=== PATIENT | female | born 2000 | race Caucasian/White ===

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

== ENCOUNTER 2019-06-15 19:28 | Emergency (ER) | payer OTHER ==
[2019-06-15 19:38] VITALS: RESP 16
[2019-06-15 20:06] LABS: Amorphous Sediment,Urine Rare /hpf; Appearance,Urine Cloudy (Clear); Bilirubin,Urine Negative (Negative); Blood,Urine Negative (Negative); Color,Urine Yellow; Glucose,Urine (UA) Negative (Negative); Ketones,Urine Negative (Negative); Leukocyte Esterase,Urine Negative (Negative); Mucus,Urine Rare /hpf; Nitrite,Urine Negative (Negative); Protein,Urine Negative (Negative); RBC,Urine 1 /hpf (0-5); Specific Gravity,Urine 1.015 (1.001-1.035); Squamous Epithelial Cell,Urine 5 /hpf (0-4); WBC,Urine 5 /hpf (0-5)
[2019-06-15 20:19] LABS: Basophils # (A) 0.1 k/uL (0-0.2); Basophils % (A) 1 %; Eosinophils # (A) 0.5 k/uL (0-0.7); Eosinophils % (A) 5 %; HCT 38.9 % (34.0-46.0); HGB 13.1 gm/dL (11.4-16.0); Lymphocytes # (A) 2.6 k/uL (1.0-4.8); Lymphocytes % (A) 26 %; MCH 29.4 pg (25.0-35.0); MCHC 33.7 g/dL (31.0-37.0); MCV 87.3 fL (80.0-100.0); Monocytes # (A) 0.6 k/uL (0-1.0); Monocytes % (A) 6 %; Neutrophils % (A) 61 %; Platelet Count 254 k/uL (150-450); RBC 4.45 m/uL (3.80-5.40); RDW 12.7 % (11.5-15.5); WBC 9.9 k/uL (4.0-11.0)
[2019-06-15 20:29] LABS: ALT 28 U/L (9-52); AST 28 U/L (14-36); African American GFR (CKD) >90 (>60 ml/min/1.73 sqM); Albumin 4.2 g/dL (3.5-5.0); Alkaline Phosphatase 110 U/L (38-126); Anion Gap 9 mmol/L; Blood Urea Nitrogen 7 mg/dL (7-17); Calcium 9.3 mg/dL (8.4-10.2); Carbon Dioxide 24 mmol/L (22-30); Chloride 107 mmol/L (98-107); Glucose 109 mg/dL (74-99); Potassium 3.5 mmol/L (3.5-5.1); Sodium 140 mmol/L (137-145); Total Bilirubin 0.6 mg/dL (0.2-1.3); Total Protein 7.3 g/dL (6.3-8.2)
--- NOTE | 2019-06-15 20:41 | ED ---
Nausea/Vomiting/Diarrhea HPI - General Chief complaint: Nausea/Vomiting/Diarrhea Stated complaint: Nausea Time Seen by Provider: 06/15/19 19:39 Source: patient Mode of arrival: ambulatory Limitations: no limitations - History of Present Illness Initial comments: Patient is a 18-year-old female presenting to emergency Department with complaints of nausea x 1 day. Patient states she took a test yesterday that was negative however her mother states that she should have her blood checked to be sure. Patient states she also feels "different.". Patient denies any fever, chills, vomiting, abdominal pain, shortness of breath, chest pain, vaginal bleeding, vaginal discharge. Patient denies being on control. Patient takes no other medications. Patient has no other complaints at this time. Upon arrival to ER, vital signs are stable. - Related Data Home Medications Medication Instructions Recorded Confirmed Cetirizine HCl [Zyrtec] 10 mg PO HS 05/30/18 05/30/18 Norgestimate-Ethinyl Estradiol 1 tab PO DAILY 05/30/18 05/30/18 [Sprintec 28 Day Tablet] Allergies Allergy/AdvReac Type Severity Reaction Status Date / Time No Known Allergies Allergy Verified 06/15/19 19:38 Review of Systems ROS Statement: Those systems with pertinent positive or pertinent negative responses have been documented in the HPI. ROS Other: All systems not noted in ROS Statement are negative. Past Medical History Past Medical History: No Reported History History of Any Multi-Drug Resistant Organisms: None Reported Past Surgical History: No Surgical Hx Reported Past Psychological History: ADD/ADHD Smoking Status: Never smoker Past Alcohol Use History: None Reported Past Drug Use History: None Reported General Exam - General Exam Comments Initial Comments: GENERAL: Well-appearing, well-nourished and in no acute distress. HEAD: Atraumatic, normocephalic. EYES: Pupils equal round and reactive to light, extraocular movements intact, sclera anicteric, conjunctiva are normal. ENT: TMs normal, nares patent, oropharynx clear without exudates. Moist mucous membranes. NECK: Normal range of motion, supple without lymphadenopathy or JVD. LUNGS: Breath sounds clear to auscultation bilaterally and equal. No wheezes rales or rhonchi. HEART: Regular rate and rhythm without murmurs, rubs or gallops. ABDOMEN: Soft, nontender, normoactive bowel sounds. No guarding, no rebound. No masses appreciated. : Deferred EXTREMITIES: Normal range of motion, no pitting or edema. No clubbing or cyanosis. NEUROLOGICAL: Cranial nerves II through XII grossly intact. Normal speech, normal gait. PSYCH: Normal mood, normal affect. SKIN: Warm, Dry, normal turgor, no rashes or lesions noted. Limitations: no limitations Course Vital Signs 06/15/19 06/15/19 06/15/19 19:36 19:38 21:28 Temperature 983 F H 98.3 F 97.6 F Pulse Rate 90 85 Respiratory 16 16 Rate Blood Pressure 126/89 96/79 O2 Sat by Pulse 99 97 Oximetry Medical Decision Making - Medical Decision Making Patient is a 18-year-old female presenting with nausea times one day. Patient believes she may be . Patient took a test yesterday was negative. Patient denies fever, chills, abdominal pain, vaginal discharge, vaginal bleeding, shortness of breath. Patient has no other complaints. Patient's exam is unremarkable today. CBC, CMP, UA are all within normal limits. Urine hCG is not detected at this time. It was discussed with patient that it could be related to her ALLERGIES. Patient's vital signs remained stable. Patient is stable for discharge at this time. Return parameters were discussed with the patient she verbalized understanding. Patient will follow up with PCP as needed. Case discussed with Dr. Cooney. - Lab Data Result diagrams: 06/15/19 20:10 06/15/19 20:10 Lab Results 06/15/19 06/15/19 06/15/19 Range/Units 19:45 19:45 20:10 WBC 9.9 (4.0-11.0) k/uL RBC 4.45 (3.80-5.40) m/uL Hgb 13.1 (11.4-16.0) gm/dL Hct 38.9 (34.0-46.0) % MCV 87.3 (80.0-100.0) fL MCH 29.4 (25.0-35.0) pg MCHC 33.7 (31.0-37.0) g/dL RDW 12.7 (11.5-15.5) % Plt Count 254 (150-450) k/uL Neutrophils % 61 % Lymphocytes % 26 % Monocytes % 6 % Eosinophils % 5 % Basophils % 1 % Neutrophils # 6.0 (1.3-7.7) k/uL Lymphocytes # 2.6 (1.0-4.8) k/uL Monocytes # 0.6 (0-1.0) k/uL Eosinophils # 0.5 (0-0.7) k/uL Basophils # 0.1 (0-0.2) k/uL Sodium (137-145) mmol/L Potassium (3.5-5.1) mmol/L Chloride (98-107) mmol/L Carbon Dioxide (22-30) mmol/L Anion Gap mmol/L BUN (7-17) mg/dL Creatinine (0.52-1.04) mg/dL Est GFR (CKD-EPI)AfAm (>60 ml/min/1.73 sqM) Est GFR (CKD-EPI)NonAf (>60 ml/min/1.73 sqM) Glucose (74-99) mg/dL Calcium (8.4-10.2) mg/dL Total Bilirubin (0.2-1.3) mg/dL AST (14-36) U/L ALT (9-52) U/L Alkaline Phosphatase (38-126) U/L Total Protein (6.3-8.2) g/dL Albumin (3.5-5.0) g/dL Urine Color Yellow Urine Appearance Cloudy H (Clear) Urine pH 8.0 (5.0-8.0) Ur Specific [place] 1.015 (1.001-1.035) Urine Protein Negative (Negative) Urine Glucose (UA) Negative (Negative) Urine Ketones Negative (Negative) Urine Blood Negative (Negative) Urine Nitrite Negative (Negative) Urine Bilirubin Negative (Negative) Urine Urobilinogen 2.0 (<2.0) mg/dL Ur Leukocyte Esterase Negative (Negative) Urine RBC 1 (0-5) /hpf Urine WBC 5 (0-5) /hpf Ur Squamous Epith Cells 5 H (0-4) /hpf Amorphous Sediment Rare H (None) /hpf Urine Mucus Rare H (None) /hpf Urine HCG, Qual Not Detected (Not Detectd) 06/15/19 Range/Units 20:10 WBC (4.0-11.0) k/uL RBC (3.80-5.40) m/uL Hgb (11.4-16.0) gm/dL Hct (34.0-46.0) % MCV (80.0-100.0) fL MCH (25.0-35.0) pg MCHC (31.0-37.0) g/dL RDW (11.5-15.5) % Plt Count (150-450) k/uL Neutrophils % % Lymphocytes % % Monocytes % % Eosinophils % % Basophils % % Neutrophils # (1.3-7.7) k/uL Lymphocytes # (1.0-4.8) k/uL Monocytes # (0-1.0) k/uL Eosinophils # (0-0.7) k/uL Basophils # (0-0.2) k/uL Sodium 140 (137-145) mmol/L Potassium 3.5 (3.5-5.1) mmol/L Chloride 107 (98-107) mmol/L Carbon Dioxide 24 (22-30) mmol/L Anion Gap 9 mmol/L BUN 7 (7-17) mg/dL Creatinine 0.63 (0.52-1.04) mg/dL Est GFR (CKD-EPI)AfAm >90 (>60 ml/min/1.73 sqM) Est GFR (CKD-EPI)NonAf >90 (>60 ml/min/1.73 sqM) Glucose 109 H (74-99) mg/dL Calcium 9.3 (8.4-10.2) mg/dL Total Bilirubin 0.6 (0.2-1.3) mg/dL AST 28 (14-36) U/L ALT 28 (9-52) U/L Alkaline Phosphatase 110 (38-126) U/L Total Protein 7.3 (6.3-8.2) g/dL Albumin 4.2 (3.5-5.0) g/dL Urine Color Urine Appearance (Clear) Urine pH (5.0-8.0) Ur Specific [place] (1.001-1.035) Urine Protein (Negative) Urine Glucose (UA) (Negative) Urine Ketones (Negative) Urine Blood (Negative) Urine Nitrite (Negative) Urine Bilirubin (Negative) Urine Urobilinogen (<2.0) mg/dL Ur Leukocyte Esterase (Negative) Urine RBC (0-5) /hpf Urine WBC (0-5) /hpf Ur Squamous Epith Cells (0-4) /hpf Amorphous Sediment (None) /hpf Urine Mucus (None) /hpf Urine HCG, Qual (Not Detectd) Disposition Clinical Impression: Nausea Disposition: HOME SELF-CARE Condition: Stable Instructions (If sedation given, give patient instructions): Acute Nausea and Vomiting (ED) Additional Instructions: Please return to the Emergency Department if symptoms worsen or any other concerns. Follow-up with PCP as needed. Is patient prescribed a controlled substance at d/c from ED?: No Referrals: None,Stated [Primary Care Provider] - 1-2 days
[2019-06-15 21:30] VITALS: BP 96/79; PULSE 85; TEMP 97.6
== END 2019-06-15 21:28 | disposition home or self-care (01) ==
LOC: EC 19:28
DX: R11.0 Nausea (principal); Z79.3 Long term (current) use of hormonal contraceptives; Z79.899 Other long term (current) drug therapy
CPT/HCPCS: 36415; 80053; 81001; 81025; 85025; 99283

== ENCOUNTER → 2019-10-23 | Outpatient (CLI) | payer OTHER ==
--- NOTE | 2019-10-23 17:07 | XR ---
EXAMINATION TYPE: XR cervical spine comp DATE OF EXAM: 10/23/2019 TECHNIQUE: Frontal, lateral, oblique, and open mouth view of the cervical spine are obtained. 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 COMPARISON: None FINDINGS: The cervical spine is visualized in its entirety from C1 thru the top of T1 level, it is s traightens in alignment without evidence of acute fracture or dislocation. The pre-vertebral soft ti ssue appears within normal limits. The C1-C2 articulation is within normal limits on the open mouth view. Vertebral body heights are maintained. There is poor visualization of C2-C3 disc space, cannot exclude some partial left hepatic fusion C2-C3 level. One oblique image is suboptimal in technique. O verlying clothing material is present. IMPRESSION: As above. Follow-up CT may be beneficial.
--- NOTE | 2019-10-23 17:07 | XR ---
EXAMINATION TYPE: XR lumbosacral spine min 4V DATE OF EXAM: 10/23/2019 CLINICAL HISTORY: Low back pain. TECHNIQUE: Frontal, lateral, and oblique images of the lumbar spine are obtained. COMPARISON: None FINDINGS: There are 5 lumbar type vertebral bodies identified. The lumbar spine shows satisfactory alignment without evidence of acute fracture or dislocation. Vertebral body heights and disk space he ights are within normal limits. The oblique images appear within normal limits. The overlying soft tissue appears unremarkable. IMPRESSION: Unremarkable study.
== END | disposition home or self-care (01) ==
LOC: RADXRMAIN 16:30
PROVIDERS: ATTEND Family Medicine
DX: M51.9 Unspecified thoracic, thoracolumbar and lumbosacral intervertebral disc disorder (principal)
CPT/HCPCS: 72050; 72110

== ENCOUNTER 2020-02-05 15:54 | Emergency (ER) | payer OTHER ==
[2020-02-05 16:00] VITALS: RESP 18
[2020-02-05 16:28] LABS: Appearance,Urine Cloudy (Clear); Bacteria,Urine Few /hpf; Bilirubin,Urine Negative (Negative); Blood,Urine Large (Negative); Color,Urine Red; Glucose,Urine (UA) Negative (Negative); Ketones,Urine Negative (Negative); Leukocyte Esterase,Urine Large (Negative); Nitrite,Urine Negative (Negative); Protein,Urine 2+ (Negative); RBC,Urine >182 /hpf (0-5); Specific Gravity,Urine 1.007 (1.001-1.035); Urobilinogen,Urine <2.0 mg/dL (<2.0); WBC,Urine >182 /hpf (0-5)
--- NOTE | 2020-02-05 17:07 | XR ---
EXAMINATION TYPE: XR KUB DATE OF EXAM: 02/05/2020 COMPARISON: None INDICATION: Flank pain, hematuria TECHNIQUE: Single view abdomen upright view FINDINGS: There is a normal bowel gas pattern. Psoas margins are normal. No organomegaly is present. No suspicious renal or ureteral stones are evident IMPRESSION: 1. Unremarkable Abdomen
[2020-02-05] MEDS ORDERED: cefTRIAXone 1,000 MG VIAL (IM USE) IM STA (17:25)
--- NOTE | 2020-02-05 17:25 | ED ---
Female Urogenital HPI - General Chief complaint: Urogenital Stated complaint: back pain Time Seen by Provider: 02/05/20 16:06 Source: patient Mode of arrival: ambulatory Limitations: no limitations - History of Present Illness Initial comments: Patient is a 19-year-old female presenting to the emergency Department with complaints of right sided flank pain as well as hematuria 1 day. Patient states she noticed a pain in her right lower back that started 3 days ago which was very sharp and severe at first. Patient states her pain today is very mini mal at this time but then noticed blood in her urine this morning. That's why she came into the ER. She denies any fever or chills, nausea, vomiting, diarrhea. She states she does not have a history of kidney stones. She has no other complaints at this time. She states her and her boyfriend are trying to get so she is unsure if she is or not today. Last Menstrual Period: 01/29/20 - Related Data Home Medications Medication Instructions Recorded Confirmed Cetirizine HCl [Zyrtec] 10 mg PO HS 05/30/18 05/30/18 Norgestimate-Ethinyl Estradiol 1 tab PO DAILY 05/30/18 05/30/18 [Sprintec 28 Day Tablet] Previous Rx's Medication Instructions Recorded Cephalexin [Keflex] 500 mg PO BID 5 Days #10 cap 02/05/20 Allergies Allergy/AdvReac Type Severity Reaction Status Date / Time No Known Allergies Allergy Verified 02/05/20 15:59 Review of Systems ROS Statement: Those systems with pertinent positive or pertinent negative responses have been documented in the HPI. ROS Other: All systems not noted in ROS Statement are negative. Past Medical History Past Medical History: No Reported History History of Any Multi-Drug Resistant Organisms: None Reported Past Surgical History: No Surgical Hx Reported Past Psychological History: ADD/ADHD Smoking Status: Current every day smoker Past Alcohol Use History: None Reported Past Drug Use History: Marijuana General Exam - General Exam Comments Initial Comments: GENERAL: Well-appearing, well-nourished and in no acute distress. HEAD: Atraumatic, normocephalic. EYES: Pupils equal round and reactive to light, extraocular movements intact, sclera anicteric, conjunctiva are normal. ENT: TMs normal, nares patent, oropharynx clear without exudates. Moist mucous membranes. NECK: Normal range of motion, supple without lymphadenopathy or JVD. LUNGS: Breath sounds clear to auscultation bilaterally and equal. No wheezes rales or rhonchi. HEART: Regular rate and rhythm without murmurs, rubs or gallops. ABDOMEN: Very mild right flank pain and right sided abdominal pain. Soft, normoactive bowel sounds. No guarding, no rebound. No masses appreciated. : Deferred EXTREMITIES: Normal range of motion, no pitting or edema. No clubbing or cyanosis. NEUROLOGICAL: Normal speech, normal gait. PSYCH: Normal mood, normal affect. SKIN: Warm, Dry, normal turgor, no rashes or lesions noted. Limitations: no limitations Course Vital Signs 02/05/20 02/05/20 15:57 17:43 Temperature 99.1 F 99.0 F Pulse Rate 117 H 90 Respiratory 18 18 Rate Blood Pressure 117/80 116/78 O2 Sat by Pulse 99 98 Oximetry Medical Decision Making - Medical Decision Making Patient is a 19-year-old female here for hematuria 1 day. Patient's exam is unremarkable with only some very mild right-sided abdominal discomfort. Patient's urine does show significant hematuria as well as bacteriuria. Urine hCG is not detected. KUB shows no acute findings. I discussed with patient that I believe she has recently passed a small kidney stone. Patient will be started on Keflex for UTI. Patient was given Rocephin in the ER before discharge. I also recommended continuing to increase her fluid intake. She needs to follow up with her PCP. Patient is agreement with this plan of care. Return parameters were discussed with the patient she verbalized understanding. Case discussed with Dr. Colindres. - Lab Data Lab Results 02/05/20 02/05/20 Range/Units 16:13 16:13 Urine Color Red Urine Appearance Cloudy H (Clear) Urine pH 7.0 (5.0-8.0) Ur Specific [place] 1.007 (1.001-1.035) Urine Protein 2+ H (Negative) Urine Glucose (UA) Negative (Negative) Urine Ketones Negative (Negative) Urine Blood Large H (Negative) Urine Nitrite Negative (Negative) Urine Bilirubin Negative (Negative) Urine Urobilinogen <2.0 (<2.0) mg/dL Ur Leukocyte Esterase Large H (Negative) Urine RBC >182 H (0-5) /hpf Urine WBC >182 H (0-5) /hpf Urine WBC Clumps Few H (None) /hpf Urine Bacteria Few H (None) /hpf Urine HCG, Qual Not Detected (Not Detectd) Disposition Clinical Impression: Urinary tract infection, Kidney stone Disposition: HOME SELF-CARE Condition: Stable Instructions (If sedation given, give patient instructions): Urinary Tract Infection in Women (ED) Additional Instructions: Please return to the Emergency Department if symptoms worsen or any other concerns. Take antibiotic as prescribed. Follow-up with PCP if needed. Prescriptions: Cephalexin [Keflex] 500 mg PO BID 5 Days #10 cap Is patient prescribed a controlled substance at d/c from ED?: No Referrals: Bryant Chavira MD [Primary Care Provider] - 1-2 days
[2020-02-05 17:44] VITALS: BP 116/78; PULSE 90; TEMP 99
== END 2020-02-05 17:44 | disposition home or self-care (01) ==
LOC: EC 15:54
DX: N39.0 Urinary tract infection, site not specified (principal); N20.0 Calculus of kidney; F17.200 Nicotine dependence, unspecified, uncomplicated
CPT/HCPCS: 81001; 81025; 87086; 74018; 99283; 96372; J0696

== ENCOUNTER 2020-03-29 12:19 | Emergency (ER) | payer OTHER ==
[2020-03-29 12:25] VITALS: BP 114/79; PULSE 75; RESP 16; TEMP 98.2
[2020-03-29 13:06] LABS: Appearance,Urine Clear (Clear); Bacteria,Urine Rare /hpf; Bilirubin,Urine Negative (Negative); Blood,Urine Negative (Negative); Color,Urine Light Yellow; Glucose,Urine (UA) Negative (Negative); Ketones,Urine Negative (Negative); Leukocyte Esterase,Urine Trace (Negative); Mucus,Urine Rare /hpf; Nitrite,Urine Negative (Negative); Protein,Urine Negative (Negative); Specific Gravity,Urine 1.005 (1.001-1.035); Squamous Epithelial Cell,Urine 2 /hpf (0-4); Urobilinogen,Urine <2.0 mg/dL (<2.0); WBC,Urine 2 /hpf (0-5)
--- NOTE | 2020-03-29 13:28 | ED ---
General Adult HPI - General Chief complaint: Recheck/Abnormal Lab/Rx Stated complaint: preg test Time Seen by Provider: 03/29/20 12:26 Source: patient, RN notes reviewed Mode of arrival: ambulatory Limitations: no limitations - History of Present Illness Initial comments: 19-year-old female with a complicated past medical history presents to the emergency room for possible . Patient states she had 2 very faint positive test last night. Patient states her last period was the beginning of January that she often skip periods. Patient denies any abdominal pain or vaginal bleeding. Patient is here because she wants another test.Patient has no other complaints at this time including shortness of breath, chest pain, abdominal pain, nausea or vomiting, headache, or visual changes. - Related Data Home Medications Medication Instructions Recorded Confirmed No Known Home Medications 03/29/20 03/29/20 Allergies Allergy/AdvReac Type Severity Reaction Status Date / Time No Known Allergies Allergy Verified 03/29/20 13:12 Review of Systems ROS Statement: Those systems with pertinent positive or pertinent negative responses have been documented in the HPI. ROS Other: All systems not noted in ROS Statement are negative. Past Medical History Past Medical History: No Reported History History of Any Multi-Drug Resistant Organisms: None Reported Past Surgical History: No Surgical Hx Reported Past Psychological History: ADD/ADHD Smoking Status: Current every day smoker Past Alcohol Use History: None Reported Past Drug Use History: Marijuana General Exam Limitations: no limitations General appearance: alert, in no apparent distress Head exam: Present: atraumatic, normocephalic, normal inspection Eye exam: Present: normal appearance, PERRL, EOMI. Absent: scleral icterus, conjunctival injection, periorbital swelling ENT exam: Present: normal exam, mucous membranes moist Neck exam: Present: normal inspection, full ROM. Absent: tenderness, meningismus, lymphadenopathy Respiratory exam: Present: normal lung sounds bilaterally. Absent: respiratory distress, wheezes, rales, rhonchi, stridor Cardiovascular Exam: Present: regular rate, normal rhythm, normal heart sounds. Absent: systolic murmur, diastolic murmur, rubs, gallop, clicks GI/Abdominal exam: Present: soft, normal bowel sounds. Absent: distended, tenderness, guarding, rebound, rigid Course Vital Signs 03/29/20 12:22 Temperature 98.2 F Pulse Rate 75 Respiratory 16 Rate Blood Pressure 114/79 O2 Sat by Pulse 96 Oximetry Medical Decision Making - Medical Decision Making Urine test today was negative through the emergency room. I did recommend patient repeat another urine test at home and about a week. Until that time she should refrain from drinking which was discussed with her. I discussed taking vitamins. Discussed returning here for any worsening symptoms. She will follow up with her primary care provider or OB. - Lab Data Lab Results 03/29/20 03/29/20 Range/Units 12:35 12:35 Urine Color Light Yellow Urine Appearance Clear (Clear) Urine pH 7.0 (5.0-8.0) Ur Specific [place] 1.005 (1.001-1.035) Urine Protein Negative (Negative) Urine Glucose (UA) Negative (Negative) Urine Ketones Negative (Negative) Urine Blood Negative (Negative) Urine Nitrite Negative (Negative) Urine Bilirubin Negative (Negative) Urine Urobilinogen <2.0 (<2.0) mg/dL Ur Leukocyte Esterase Trace H (Negative) Urine WBC 2 (0-5) /hpf Ur Squamous Epith Cells 2 (0-4) /hpf Urine Bacteria Rare H (None) /hpf Urine Mucus Rare H (None) /hpf Urine HCG, Qual Not Detected (Not Detectd) Disposition Clinical Impression: Encounter for test Disposition: HOME SELF-CARE Condition: Good Instructions (If sedation given, give patient instructions): First Trimester (ED) Additional Instructions: Please repeat test in another week. In the meantime refrain from drinking or doing any other harmful activities that could harm the fetus. Take vitamins. Return to the emergency room for any worsening symptoms. Otherwise follow up with primary care or OBGYN. Is patient prescribed a controlled substance at d/c from ED?: No Referrals: Bryant Chavira MD [Primary Care Provider] - 1-2 days Time of Disposition: 13:27
== END 2020-03-29 13:30 | disposition home or self-care (01) ==
LOC: EC 12:19
DX: Z32.02 Encounter for pregnancy test, result negative (principal); F17.200 Nicotine dependence, unspecified, uncomplicated
CPT/HCPCS: 81001; 81025; 99282

== ENCOUNTER 2020-04-18 22:21 | Emergency (ER) | payer OTHER ==
[2020-04-18 22:36] VITALS: BP 114/72; PULSE 83; RESP 16; TEMP 98.5
--- NOTE | 2020-04-18 23:22 | ED ---
Female Urogenital HPI - General Chief complaint: Vaginal Bleeding Stated complaint: Vaginal Bleeding Time Seen by Provider: 04/18/20 22:58 Source: patient Mode of arrival: ambulatory Limitations: no limitations - History of Present Illness MD Complaint: vaginal bleeding -: days(s) Radiation: suprapubic Severity: mild Quality: cramping Consistency: intermittent Improves with: none Worsens with: none Patient : Yes Number of weeks : 12 Associated Symptoms: denies other symptoms - Related Data Home Medications Medication Instructions Recorded Confirmed No Known Home Medications 03/29/20 03/29/20 Allergies Allergy/AdvReac Type Severity Reaction Status Date / Time No Known Allergies Allergy Verified 04/18/20 22:36 Review of Systems ROS Statement: Those systems with pertinent positive or pertinent negative responses have been documented in the HPI. ROS Other: All systems not noted in ROS Statement are negative. Constitutional: Denies: fever, chills Respiratory: Denies: cough, dyspnea Cardiovascular: Denies: chest pain, palpitations, edema Gastrointestinal: Reports: as per HPI, abdominal pain. Denies: nausea, vomiting, diarrhea, constipation Genitourinary: Reports: discharge. Denies: dysuria, frequency, hematuria Musculoskeletal: Denies: back pain Skin: Denies: rash Neurological: Denies: headache, weakness, numbness Past Medical History Past Medical History: No Reported History History of Any Multi-Drug Resistant Organisms: None Reported Past Surgical History: No Surgical Hx Reported Past Psychological History: ADD/ADHD Past Alcohol Use History: None Reported Past Drug Use History: Marijuana General Exam Limitations: no limitations General appearance: alert, in no apparent distress Head exam: Present: atraumatic, normocephalic Eye exam: Present: normal appearance. Absent: scleral icterus, conjunctival injection ENT exam: Present: normal oropharynx Neck exam: Present: normal inspection Respiratory exam: Present: normal lung sounds bilaterally. Absent: respiratory distress, wheezes, rales, rhonchi, stridor Cardiovascular Exam: Present: regular rate, normal rhythm, normal heart sounds. Absent: systolic murmur, diastolic murmur, rubs, gallop GI/Abdominal exam: Present: soft. Absent: distended, tenderness, guarding, rebound, rigid, mass Extremities exam: Present: normal inspection, normal capillary refill. Absent: pedal edema, calf tenderness Back exam: Present: normal inspection. Absent: CVA tenderness (R), CVA tenderness (L) Neurological exam: Present: alert Skin exam: Present: warm, dry, intact, normal color. Absent: rash Course Vital Signs 04/18/20 22:32 Temperature 98.5 F Pulse Rate 83 Respiratory 16 Rate Blood Pressure 114/72 O2 Sat by Pulse 97 Oximetry Medical Decision Making - Lab Data Lab Results 04/18/20 04/18/20 Range/Units 23:34 23:34 Urine Color Yellow Urine Appearance Turbid H (Clear) Urine pH 7.0 (5.0-8.0) Ur Specific [place] 1.014 (1.001-1.035) Urine Protein Negative (Negative) Urine Glucose (UA) Negative (Negative) Urine Ketones Negative (Negative) Urine Blood Negative (Negative) Urine Nitrite Negative (Negative) Urine Bilirubin Negative (Negative) Urine Urobilinogen <2.0 (<2.0) mg/dL Ur Leukocyte Esterase Negative (Negative) Urine RBC <1 (0-5) /hpf Urine WBC 2 (0-5) /hpf Ur Squamous Epith Cells 3 (0-4) /hpf Amorphous Sediment Rare H (None) /hpf Urine Mucus Rare H (None) /hpf Urine HCG, Qual Detected (Not Detectd) Disposition Clinical Impression: Threatened Disposition: HOME SELF-CARE Instructions (If sedation given, give patient instructions): Threatened Miscarriage (ED) Is patient prescribed a controlled substance at d/c from ED?: No Referrals: Bryant Chavira MD [Primary Care Provider] - 1-2 days Kira Cason DO [Doctor of Osteopathic Medicine] - 1-2 days
[2020-04-18 23:48] LABS: Amorphous Sediment,Urine Rare /hpf; Appearance,Urine Turbid (Clear); Bilirubin,Urine Negative (Negative); Blood,Urine Negative (Negative); Color,Urine Yellow; Glucose,Urine (UA) Negative (Negative); Ketones,Urine Negative (Negative); Leukocyte Esterase,Urine Negative (Negative); Mucus,Urine Rare /hpf; Nitrite,Urine Negative (Negative); Protein,Urine Negative (Negative); RBC,Urine <1 /hpf (0-5); Specific Gravity,Urine 1.014 (1.001-1.035); Squamous Epithelial Cell,Urine 3 /hpf (0-4); Urobilinogen,Urine <2.0 mg/dL (<2.0); WBC,Urine 2 /hpf (0-5)
--- NOTE | 2020-04-19 00:40 | US ---
EXAMINATION TYPE: Transabdominal DATE OF EXAM: 04/19/2020 12:19 AM COMPARISON: NONE CLINICAL HISTORY: vaginal bleeding. brown spotting today, no cramping, G1 EXAM PERFORMED: OBTA EXAM MEASUREMENTS: GESTATIONAL AGE / DATING Physician Established: Not yet established Dates by LMP: (12 weeks/1 days) EDC: 10/30/2020 Dates by First Scan: No previous this is first scan Dates by Current Scan for: (5 weeks/6 days) EDC: 12/14/2020 MATERNAL ANATOMY Uterus: 7.8 x 4.5 x 4.3cm Right Ovary: 3.8 x 2.3 x 2.6cm Left Ovary: not seen due to bowel gas and enlarging UT Post CDS / Adnexa: wnl Presence of free fluid: no Presence of corpus luteal cyst: yes, right ovary = 2.1cm Presence of subchorionic bleed: no GESTATION / SURVEY CRL: 0.25 (5 weeks/6 days) MSD: wnl Yolk Sac (normal less than 6mm): 0.3cm Heart Rate: 125 bpm Rhythm: Normal IUP: Viable IUP Date of LMP: 01/24/2020 Beta HcG (if available): pending IMPRESSION: the ultrasound gestational age is 5 weeks and 6 days. No complicating process seen.
== END 2020-04-19 00:37 | disposition home or self-care (01) ==
LOC: EC 22:21
DX: O20.0 Threatened abortion (principal); Z3A.01 Less than 8 weeks gestation of pregnancy
CPT/HCPCS: 76801; 81001; 81025; 86900; 86901; 99284

== ENCOUNTER → 2020-06-29 | Outpatient (CLI) | payer OTHER | END | disposition home or self-care (01) | LOC: LABWHC1 08:12 | PROVIDERS: ATTEND Family Medicine | DX: Z20.828 Contact with and (suspected) exposure to other viral communicable diseases (principal) | CPT/HCPCS: U0003; C9803 ==

== ENCOUNTER 2020-06-30 17:20 | Emergency (ER) | payer OTHER ==
[2020-06-30 17:37] VITALS: TEMP 98.6
--- NOTE | 2020-06-30 17:46 | ED ---
General Adult HPI - General Chief complaint: Nausea/Vomiting/Diarrhea Stated complaint: 16wks preg, abd pain Time Seen by Provider: 06/30/20 17:46 Source: patient Mode of arrival: ambulatory Limitations: no limitations - History of Present Illness Initial comments: Patient is a 19-year-old female, , 16 week presenting to the emergency department with a chief complaint of abdominal cramping. Patient reports yesterday she was walking more than usual and had developed some lower abdominal cramping pain. She does report some intermittent sharp pains in the right lower quadrants that have been ongoing for about 3 weeks as well. She simons s report nausea with several episodes of nonbilious and nonbloody vomiting. States this is somewhat typical for her . Denies increased urgency frequency or dysuria. Denies hematuria, hematochezia or melena. States that she sees . - Related Data Home Medications Medication Instructions Recorded Confirmed No Known Home Medications 03/29/20 03/29/20 Allergies Allergy/AdvReac Type Severity Reaction Status Date / Time No Known Allergies Allergy Verified 06/30/20 17:37 Review of Systems ROS Statement: Those systems with pertinent positive or pertinent negative responses have been documented in the HPI. ROS Other: All systems not noted in ROS Statement are negative. Past Medical History Past Medical History: No Reported History History of Any Multi-Drug Resistant Organisms: None Reported Past Surgical History: No Surgical Hx Reported Past Psychological History: ADD/ADHD Smoking Status: Never smoker Past Alcohol Use History: None Reported Past Drug Use History: None Reported General Exam Limitations: no limitations General appearance: alert, in no apparent distress, obese Head exam: Present: atraumatic, normocephalic, normal inspection Eye exam: Present: normal appearance, PERRL, EOMI. Absent: scleral icterus, conjunctival injection, nystagmus Pupils: Present: normal accommodation ENT exam: Present: normal exam, normal oropharynx, mucous membranes moist, TM's normal bilaterally, normal external ear exam Neck exam: Present: normal inspection, full ROM. Absent: tenderness, lymphadenopathy Respiratory exam: Present: normal lung sounds bilaterally. Absent: respiratory distress, wheezes, rales Cardiovascular Exam: Present: regular rate, normal rhythm, normal heart sounds GI/Abdominal exam: Present: soft. Absent: distended, tenderness, guarding, rebound Extremities exam: Present: normal inspection, full ROM, normal capillary refill. Absent: tenderness Back exam: Present: normal inspection, full ROM. Absent: tenderness, CVA tenderness (R), CVA tenderness (L) Neurological exam: Present: alert, oriented X3, CN II-XII intact, normal gait Psychiatric exam: Present: normal affect, normal mood Skin exam: Present: warm, dry, intact, normal color Course Vital Signs 06/30/20 17:35 Temperature 98.6 F Pulse Rate 88 Respiratory 18 Rate Blood Pressure 100/63 O2 Sat by Pulse 100 Oximetry Medical Decision Making - Medical Decision Making Patient is a 19-year-old female, , 16 week presenting [facility] the [facility] with a chief complaint of abdominal cramping. On physical examination, patient does have some right lower quadrant abdominal tenderness. No CVA tenderness. She does not have any vaginal bleeding, discharge or urinary symptoms. CBC is unremarkable. CMP reveals a decrease in BUN and creatinine. UA shows no signs of urinary tract infection. She does have moderate amounts of, cells indicating not a clean catch sample. ultrasound reveals a single live intrauterine at 16 weeks. heart tones 148. Patient was given IV fluids, Reglan and Benadryl. On reevaluation, patient reports her symptoms have completely resolved and she feels much better. She is going to follow-up with her OB. Strict return parameters were thoroughly discussed with patient is a worsening agreeable At this time, patient care signed off to Laura. - Lab Data Result diagrams: 06/30/20 Unknown 06/30/20 Unknown Lab Results 06/30/20 06/30/20 06/30/20 Range/Units Unknown Unknown Unknown WBC 10.8 (4.0-11.0) k/uL RBC 3.91 (3.80-5.40) m/uL Hgb 11.9 (11.4-16.0) gm/dL Hct 35.7 (34.0-46.0) % MCV 91.3 (80.0-100.0) fL MCH 30.3 (25.0-35.0) pg MCHC 33.2 (31.0-37.0) g/dL RDW 13.3 (11.5-15.5) % Plt Count 255 (150-450) k/uL Neutrophils % 72 % Lymphocytes % 21 % Monocytes % 5 % Eosinophils % 2 % Basophils % 0 % Neutrophils # 7.8 H (1.3-7.7) k/uL Lymphocytes # 2.2 (1.0-4.8) k/uL Monocytes # 0.5 (0-1.0) k/uL Eosinophils # 0.2 (0-0.7) k/uL Basophils # 0.0 (0-0.2) k/uL Sodium 135 L (137-145) mmol/L Potassium 3.7 (3.5-5.1) mmol/L Chloride 108 H (98-107) mmol/L Carbon Dioxide 23 (22-30) mmol/L Anion Gap 4 mmol/L BUN 6 L (7-17) mg/dL Creatinine 0.43 L (0.52-1.04) mg/dL Est GFR (CKD-EPI)AfAm >90 (>60 ml/min/1.73 sqM) Est GFR (CKD-EPI)NonAf >90 (>60 ml/min/1.73 sqM) Glucose 102 H (74-99) mg/dL Calcium 8.9 (8.4-10.2) mg/dL Total Bilirubin 0.4 (0.2-1.3) mg/dL AST 24 (14-36) U/L ALT 14 (4-34) U/L Alkaline Phosphatase 74 (38-126) U/L Total Protein 6.2 L (6.3-8.2) g/dL Albumin 3.4 L (3.5-5.0) g/dL Urine Color Yellow Urine Appearance Turbid H (Clear) Urine pH 6.5 (5.0-8.0) Ur Specific [place] 1.014 (1.001-1.035) Urine Protein Negative (Negative) Urine Glucose (UA) Negative (Negative) Urine Ketones Negative (Negative) Urine Blood Negative (Negative) Urine Nitrite Negative (Negative) Urine Bilirubin Negative (Negative) Urine Urobilinogen <2.0 (<2.0) mg/dL Ur Leukocyte Esterase Trace H (Negative) Urine WBC 2 (0-5) /hpf Ur Squamous Epith Cells 7 H (0-4) /hpf Amorphous Sediment Many H (None) /hpf Urine Bacteria Rare H (None) /hpf Urine Mucus Rare H (None) /hpf Disposition Clinical Impression: Abdominal cramping, Nausea & vomiting Disposition: HOME SELF-CARE Condition: Stable Instructions (If sedation given, give patient instructions): Nausea and Vomiting in (ED) Additional Instructions: 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 Return to emergency department if symptoms worsen. Is patient prescribed a controlled substance at d/c from ED?: No Referrals: Bryant Chavira MD [Primary Care Provider] - 1-2 days Time of Disposition: 20:21
[2020-06-30] MEDS ORDERED: METOCLOPRAMIDE 5 MG/ML 2 ML VIAL IVP STA (17:55)
[2020-06-30] MEDS ORDERED: SODIUM CHLORIDE 0.9% 1,000 ML IV STA (17:55)
[2020-06-30] MEDS ORDERED: diphenhydrAMINE 50 MG/ML 1 ML VIAL IVP STA (17:55)
[2020-06-30 18:29] LABS: Basophils % (A) 0 %; Eosinophils # (A) 0.2 k/uL (0-0.7); Eosinophils % (A) 2 %; HCT 35.7 % (34.0-46.0); HGB 11.9 gm/dL (11.4-16.0); Lymphocytes # (A) 2.2 k/uL (1.0-4.8); Lymphocytes % (A) 21 %; MCH 30.3 pg (25.0-35.0); MCHC 33.2 g/dL (31.0-37.0); MCV 91.3 fL (80.0-100.0); Mean Platelet Volume 7.2; Monocytes # (A) 0.5 k/uL (0-1.0); Monocytes % (A) 5 %; Neutrophils # (A) 7.8 k/uL (1.3-7.7); Neutrophils % (A) 72 %; Platelet Count 255 k/uL (150-450); RBC 3.91 m/uL (3.80-5.40); RDW 13.3 % (11.5-15.5); WBC 10.8 k/uL (4.0-11.0)
[2020-06-30 18:33] LABS: ALT 14 U/L (4-34); AST 24 U/L (14-36); African American GFR (CKD) >90 (>60 ml/min/1.73 sqM); Albumin 3.4 g/dL (3.5-5.0); Alkaline Phosphatase 74 U/L (38-126); Anion Gap 4 mmol/L; Blood Urea Nitrogen 6 mg/dL (7-17); Calcium 8.9 mg/dL (8.4-10.2); Carbon Dioxide 23 mmol/L (22-30); Chloride 108 mmol/L (98-107); Glucose 102 mg/dL (74-99); Non-African American GFR(CKD) >90 (>60 ml/min/1.73 sqM); Potassium 3.7 mmol/L (3.5-5.1); Sodium 135 mmol/L (137-145); Total Bilirubin 0.4 mg/dL (0.2-1.3); Total Protein 6.2 g/dL (6.3-8.2)
[2020-06-30 18:37] LABS: Amorphous Sediment,Urine Many /hpf; Appearance,Urine Turbid (Clear); Bacteria,Urine Rare /hpf; Bilirubin,Urine Negative (Negative); Blood,Urine Negative (Negative); Color,Urine Yellow; Glucose,Urine (UA) Negative (Negative); Ketones,Urine Negative (Negative); Leukocyte Esterase,Urine Trace (Negative); Mucus,Urine Rare /hpf; Nitrite,Urine Negative (Negative); PH, Urine 6.5 (5.0-8.0); Protein,Urine Negative (Negative); Specific Gravity,Urine 1.014 (1.001-1.035); Squamous Epithelial Cell,Urine 7 /hpf (0-4); Urobilinogen,Urine <2.0 mg/dL (<2.0); WBC,Urine 2 /hpf (0-5)
--- NOTE | 2020-06-30 18:49 | US ---
EXAMINATION TYPE: US OB >= 14 wk fetus DATE OF EXAM: 06/30/2020 COMPARISON: US CLINICAL HISTORY: abd cramping, n/v x 1 dayPAIN, NAUSEA TECHNIQUE: Transabdominal (TA) GESTATIONAL AGE / DATING Physician Established: (16 weeks/0 days) EDC: 12/15/2020 Dates by First Scan: (16 weeks/1 days) EDC: 12/14/2020 Dates by Current Scan: (16 weeks/6 days) EDC: 12/09/2020 SURVEY IUP: Single PLACENTA: Fundal PREVIA: No Previa TRACI: 12.9 cm Normal CERVICAL LENGTH (transabdominal: norm > 3.0cm): 3.4 cm BIOMETRY PRESENTATION: Vertex BPD: 3.7 cm 17 weeks / 1 days HC: 13.4 cm 16 weeks / 6 days AC: 10.5 cm 16 weeks / 3 days FL: 2.2 cm 16 weeks / 4 days ESTIMATED WEIGHT IN GRAMS: 162 grams ESTIMATED WEIGHT IN LBS/OZ: 0 lbs. 6 oz. WEIGHT PERCENTAGE BASED ON ESTABLISHED DATES: 81% HC/AC: 1.28 Normal FL/AC: 21 Normal HEART RATE: 148 bpm RHYTHM: Normal IMPRESSION: Single live intrauterine , heart rate 148 bpm.
[2020-06-30 21:00] VITALS: BP 105/64; PULSE 79; RESP 16
--- NOTE | 2020-06-30 21:12 | US ---
EXAMINATION TYPE: US abdomen APPY DATE OF EXAM: 06/30/2020 COMPARISON: Previous OB US CLINICAL HISTORY: RLQ pain to palpation. RLQ pain to palpation. Patient is 16 weeks . Blind-ending tubular, non-peristalsing structure seen within the RLQ measuring 5.4 mm in greatest AP dimension is most likely the appendix. AP Diameter (normal < 6mm) Measured outer wall to outer wall. Is the appendix seen in its entirety from the proximal cecum to distal end: No Is the appendix compressible: Yes. Is there inflammatory changes or free fluid present: Trace fluid within the right lower quadrant. IMPRESSION: 1. Normal-appearing appendix. 2. Trace nonspecific right lower quadrant free fluid.
== END 2020-06-30 21:52 | disposition home or self-care (01) ==
LOC: EC 17:20
DX: O21.8 Other vomiting complicating pregnancy (principal); O99.891 Other specified diseases and conditions complicating pregnancy; R10.31 Right lower quadrant pain; Z3A.16 16 weeks gestation of pregnancy
CPT/HCPCS: 99284 ×2; 96374 ×2; 96375 ×2; 96361 ×2; 36415; 80053; 85025; 81001; 76705; 76805; J1200; J2765

== ENCOUNTER 2020-11-29 15:35 | Inpatient (IN) | payer OTHER ==
[2020-11-29] MEDS ORDERED: LIDOCAINE 0.5% (PF) 5 MG/ML (50 ML SDV) SQ PRN (18:59)
[2020-11-29] MEDS ORDERED: OXYTOCIN 10 UNIT/ML 1 ML VIAL IM PRN (18:59)
[2020-11-29] MEDS ORDERED: TERBUTALINE 1 MG/ML VIAL SQ PRN (18:59)
[2020-11-29] MEDS ORDERED: AMPICILLIN 2,000 MG in SODIUM CHLORIDE 0.9% 100 ML IVPB STA (18:59)
[2020-11-29] MEDS ORDERED: CARBOPROST TROMETHAMINE 250 MCG/ML 1 ML AMP IM PRN (18:59)
[2020-11-29] MEDS ORDERED: METHYLERGONOVINE 0.2 MG/ML 1 ML AMP IM PRN (18:59)
[2020-11-29] MEDS: LACTATED RINGERS 1,000 ML IV SCH ×2 (19:43→21:10)
[2020-11-29 20:15] LABS: Basophils % (A) 0 %; Eosinophils # (A) 0.1 k/uL (0-0.7); Eosinophils % (A) 1 %; HCT 38.3 % (34.0-46.0); HGB 12.3 gm/dL (11.4-16.0); Hypochromasia Slight; Lymphocytes # (A) 2.3 k/uL (1.0-4.8); Lymphocytes % (A) 17 %; MCH 27.8 pg (25.0-35.0); MCV 86.9 fL (80.0-100.0); Mean Platelet Volume 9.2; Monocytes # (A) 0.5 k/uL (0-1.0); Monocytes % (A) 4 %; Neutrophils % (A) 78 %; Platelet Count 318 k/uL (150-450); RBC 4.41 m/uL (3.80-5.40); RDW 14.6 % (11.5-15.5); WBC 14.1 k/uL (3.8-10.6)
[2020-11-29] MEDS ORDERED: FAMOTIDINE 20 MG/2 ML VIAL IV PRN (20:46)
[2020-11-29] MEDS ORDERED: AMPICILLIN 1,000 MG in SODIUM CHLORIDE 0.9% 50 ML IVPB SCH (23:00)
[2020-11-30] MEDS ORDERED: SIMETHICONE 80 MG CHEWABLE PO PRN (00:52)
[2020-11-30] MEDS ORDERED: diphenhydrAMINE 50 MG CAP PO PRN (00:52)
[2020-11-30] MEDS ORDERED: diphenhydrAMINE 25 MG CAP PO PRN (00:52)
[2020-11-30] MEDS ORDERED: LANOLIN CREAM 5 GM TUBE TOPICAL PRN (00:52)
[2020-11-30] MEDS ORDERED: HYDROCORTISONE 2.5% RECTAL CREAM 30 GM TUBE RECTAL PRN (00:52)
[2020-11-30] MEDS ORDERED: diphenhydrAMINE 50 MG/ML 1 ML VIAL IVP PRN ×2 (00:52)
[2020-11-30] MEDS ORDERED: ZOLPIDEM 5 MG TAB PO PRN (00:52)
[2020-11-30] MEDS ORDERED: BENZOCAINE/MENTHOL SPRAY 1 GM/SPRAY AEROSOL TOPICAL PRN (00:52)
[2020-11-30] MEDS ORDERED: ACETAMINOPHEN TAB 325 MG TAB PO PRN (00:52)
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
--- NOTE | 2020-11-30 00:56 | P.PROBDLV ---
Vaginal Delivery Note - . Vaginal Delivery Note: g delivery of the head anterior posterior shoulders were easily delivered with gentle downward upper traction from right occiput anterior position. Once baby was fully delivered mouth nares were bulb suctioned and baby was placed on mother's abdomen where the umbilical cord was allowed to pulsate for 30 seconds prior to clamping and cutting. Nursery personnel was present and assumed care. Placenta was then delivered intact Pitocin was added to the IV. scores were 9 and 9 at one and 5 minutes [place] and weight was 6 lbs. 3 oz. A right vaginal wall avulsion was noted and repaired with 3-0 Vicryl in a running fashion following 1% Xylocaine for analgesia. Both mother and baby are stable following delivery.
[2020-11-30] MEDS ORDERED: OXYTOCIN 30 UNITS/500 ML NS 30 UNIT in SALINE 1 500ML.BAG IV SCH (01:15)
[2020-11-30] MEDS: IBUPROFEN 600 MG TAB PO SCH ×3 (02:52→16:04)
[2020-11-30] MEDS: SENNOSIDES-DOCUSATE SODIUM 1 EACH TAB PO SCH (09:17)
[2020-11-30] MEDS ORDERED: SODIUM CHLORIDE 0.9% 100 ML BAG ONE (19:20)
[2020-11-30] MEDS ORDERED: ROPIVACAINE 5MG/ML 20ML VIAL ONE (19:20)
[2020-11-30] MEDS ORDERED: fentaNYL (PF) 50 MCG/ML 5 ML AMP ONE (19:20)
[2020-12-01] MEDS: IBUPROFEN 600 MG TAB PO SCH ×3 (00:55→12:04)
[2020-12-01] MEDS: SENNOSIDES-DOCUSATE SODIUM 1 EACH TAB PO SCH ×2 (00:55→09:14)
[2020-12-01 06:43] LABS: Basophils % (A) 0 %; Eosinophils # (A) 0.1 k/uL (0-0.7); Eosinophils % (A) 1 %; HCT 32.5 % (34.0-46.0); HGB 11.2 gm/dL (11.4-16.0); Lymphocytes # (A) 2.9 k/uL (1.0-4.8); Lymphocytes % (A) 28 %; MCH 30.2 pg (25.0-35.0); MCHC 34.4 g/dL (31.0-37.0); MCV 87.7 fL (80.0-100.0); Mean Platelet Volume 8.4; Monocytes # (A) 0.6 k/uL (0-1.0); Monocytes % (A) 6 %; Neutrophils # (A) 6.8 k/uL (1.3-7.7); Neutrophils % (A) 65 %; Platelet Count 266 k/uL (150-450); RDW 14.5 % (11.5-15.5); WBC 10.5 k/uL (3.8-10.6)
--- NOTE | 2020-12-01 08:56 | P.DS ---
Providers Date of admission: 11/29/20 18:38 Expected date of discharge: 12/01/20 Attending physician: Jolly Valles Primary care physician: Stated None - Discharge Diagnosis(es) (1) Normal vaginal delivery Current Visit: Yes Status: Acute Hospital Course: Patient presented in active labor. She underwent normal vaginal delivery. Her course was uncomplicated. She'll be discharged home day #1 in stable condition to follow-up with me in 6 weeks. Plan - Discharge Summary New Discharge Prescriptions: New Ibuprofen [Motrin] 600 mg PO Q6H #30 tab No Action Pnv,Calcium 72/Iron/Folic Acid [ Plus Tablet] 1 tab PO DAILY Discharge Medication List Pnv,Calcium 72/Iron/Folic Acid [ Plus Tablet] 1 tab PO DAILY 11/29/20 [History] Ibuprofen [Motrin] 600 mg PO Q6H #30 tab 12/01/20 [Rx] Follow up Appointment(s)/Referral(s): Jolly Valles DO [Doctor of Osteopathic Medicine] - 6 Weeks Discharge Disposition: HOME SELF-CARE
[2020-12-01 09:12] VITALS: BP 105/64; PULSE 72; RESP 18; TEMP 97.5
== END 2020-12-01 11:36 | disposition home or self-care (01) | DRG 807 ==
LOC: FBPOP 15:35 → 4FBP 18:38
PROVIDERS: ADMIT Obstetrics & Gynecology; ATTEND Obstetrics & Gynecology
PROC: 10907ZC Drainage of Amniotic Fluid, Therapeutic from Products of Conception, Via Natural or Artificial Opening (ICD-10-PCS; principal; 2020-11-30)
PROC: 0KQM0ZZ Repair Perineum Muscle, Open Approach (ICD-10-PCS; principal; 2020-11-30)
PROC: 10E0XZZ Delivery of Products of Conception, External Approach (ICD-10-PCS; principal; 2020-11-30)
DX: O71.4 Obstetric high vaginal laceration alone (principal); Z37.0 Single live birth; Z3A.37 37 weeks gestation of pregnancy; F90.9 Attention-deficit hyperactivity disorder, unspecified type; O99.344 Other mental disorders complicating childbirth
CPT/HCPCS: 59025; 85025; 86850; 86900; 86901; 99213

== ENCOUNTER 2021-06-12 18:21 | Emergency (ER) | payer OTHER ==
[2021-06-12 18:27] VITALS: BP 113/76; PULSE 114; RESP 18; TEMP 98.2
[2021-06-12] MEDS ORDERED: KETOROLAC 15 MG/ML 1 ML VIAL IM STA (19:02)
--- NOTE | 2021-06-12 19:40 | XR ---
EXAMINATION TYPE: XR lumbar spine 2 or 3V DATE OF EXAM: 06/12/2021 COMPARISON: 10/23/2019 HISTORY: Pain TECHNIQUE: 5 views FINDINGS: Lumbar vertebra have normal spacing and alignment. Posterior elements are intact. There is no compression fracture. Sacroiliac joints appear normal. IMPRESSION: Normal lumbar spine. No change.
[2021-06-12 19:44] LABS: Amorphous Sediment,Urine Rare /hpf; Appearance,Urine Clear (Clear); Bilirubin,Urine Negative (Negative); Blood,Urine Trace (Negative); Color,Urine Yellow; Glucose,Urine (UA) Negative (Negative); Hyaline Casts,Urine 1 /lpf (0-2); Ketones,Urine Negative (Negative); Leukocyte Esterase,Urine Negative (Negative); Mucus,Urine Rare /hpf; Nitrite,Urine Negative (Negative); PH, Urine 6.5 (5.0-8.0); Protein,Urine Negative (Negative); RBC,Urine 2 /hpf (0-5); Specific Gravity,Urine 1.017 (1.001-1.035); Squamous Epithelial Cell,Urine <1 /hpf (0-4); Urobilinogen,Urine <2.0 mg/dL (<2.0); WBC,Urine 2 /hpf (0-5)
--- NOTE | 2021-06-12 20:00 | ED ---
Back Pain HPI - General Chief Complaint: Back Pain/Injury Stated Complaint: back pain/numb all over Time Seen by Provider: 06/12/21 18:55 Source: patient, RN notes reviewed Limitations: no limitations - History of Present Illness Initial Comments: 20 she'll female complaining of right-sided lower back pain since giving to her daughter 6 months ago. She notes that she does not have a radicular symptoms down her legs area she was otherwise a well-appearing she denied any injury or trauma to her low back. She denied any saddle anesthesia bladder bowel incontinence or retention. She did note that she had some mild discomfort in her groin with urination. - Related Data Home Medications Medication Instructions Recorded Confirmed Pnv,Calcium 72/Iron/Folic Acid 1 tab PO DAILY 11/29/20 11/29/20 [ Plus Tablet] Previous Rx's Medication Instructions Recorded Ibuprofen [Motrin] 600 mg PO Q6H #30 tab 12/01/20 Ibuprofen [Motrin] 600 mg PO Q8HR PRN #30 tab 06/12/21 predniSONE 50 mg PO DAILY #5 tab 06/12/21 Allergies Allergy/AdvReac Type Severity Reaction Status Date / Time hydromorphone [From Dilaudid] Allergy Anaphylaxis Verified 06/12/21 18:27 gabapentin AdvReac Anaphylaxis Verified 06/12/21 18:27 Review of Systems ROS Statement: Those systems with pertinent positive or pertinent negative responses have been documented in the HPI. ROS Other: All systems not noted in ROS Statement are negative. Past Medical History Past Medical History: No Reported History History of Any Multi-Drug Resistant Organisms: None Reported Past Surgical History: Cholecystectomy, Tonsillectomy Past Anesthesia/Blood Transfusion Reactions: No Reported Reaction Past Psychological History: ADD/ADHD Smoking Status: Current every day smoker Past Alcohol Use History: Occasional Past Drug Use History: None Reported - Past Family History Mother History Unknown: Yes Additional Family Medical History / Comment(s): pt states adopted does not know hx General Exam Limitations: no limitations General appearance: alert, in no apparent distress Head exam: Present: atraumatic, normocephalic, normal inspection Eye exam: Present: normal appearance, PERRL, EOMI. Absent: scleral icterus, conjunctival injection, periorbital swelling Neck exam: Present: normal inspection Respiratory exam: Present: normal lung sounds bilaterally. Absent: respiratory distress, wheezes, rales, rhonchi, stridor Cardiovascular Exam: Present: regular rate, normal rhythm, normal heart sounds. Absent: systolic murmur, diastolic murmur, rubs, gallop, clicks Extremities exam: Present: normal inspection, full ROM, normal capillary refill. Absent: tenderness, pedal edema, joint swelling, calf tenderness Back exam: Present: normal inspection, tenderness (Right SI), other (Negative straight leg test negative leg raise test) Neurological exam: Present: alert, oriented X3 Psychiatric exam: Present: normal affect, normal mood Skin exam: Present: warm, dry, intact, normal color. Absent: rash Course Vital Signs 06/12/21 18:25 Temperature 98.2 F Pulse Rate 114 H Respiratory 18 Rate Blood Pressure 113/76 O2 Sat by Pulse 98 Oximetry Medical Decision Making - Medical Decision Making 20-year-old female complaining of low back pain with tenderness over the right SI. X-ray lumbar spine, 15 mg of Toradol, urinalysis ordered. Urinalysis negative for UTI. X-ray negative for any acute fractures or dislocations. Patient most likely has sciatica back pain with no radicular symptoms. Case discussed with Dr. Morrell, patient discharge home. - Lab Data Lab Results 06/12/21 Range/Units 19:04 Urine Color Yellow Urine Appearance Clear (Clear) Urine pH 6.5 (5.0-8.0) Ur Specific [place] 1.017 (1.001-1.035) Urine Protein Negative (Negative) Urine Glucose (UA) Negative (Negative) Urine Ketones Negative (Negative) Urine Blood Trace H (Negative) Urine Nitrite Negative (Negative) Urine Bilirubin Negative (Negative) Urine Urobilinogen <2.0 (<2.0) mg/dL Ur Leukocyte Esterase Negative (Negative) Urine RBC 2 (0-5) /hpf Urine WBC 2 (0-5) /hpf Ur Squamous Epith Cells <1 (0-4) /hpf Amorphous Sediment Rare H (None) /hpf Hyaline Casts 1 (0-2) /lpf Urine Mucus Rare H (None) /hpf - Radiology Data Radiology results: report reviewed, image reviewed X-ray lumbar spine: Negative lumbar spine x-ray: No fracture. Disposition Clinical Impression: Sciatica Disposition: HOME SELF-CARE Condition: Stable Instructions (If sedation given, give patient instructions): Acute Low Back Pain (ED) Additional Instructions: Please return to the Emergency Department if symptoms worsen or any other concerns. Follow-up with primary care in 1-2 days. Take steroids as prescribed. Take Motrin as needed for pain control. Is patient prescribed a controlled substance at d/c from ED?: No Referrals: Bryant Chavira MD [Primary Care Provider] - 1-2 days Time of Disposition: 20:00
== END 2021-06-12 20:24 | disposition home or self-care (01) ==
LOC: EC 18:21
DX: M54.41 Lumbago with sciatica, right side (principal); F17.200 Nicotine dependence, unspecified, uncomplicated; Z88.5 Allergy status to narcotic agent; Z88.8 Allergy status to other drugs, medicaments and biological substances
CPT/HCPCS: 81001; 72100; 99283; 96372; J1885

== ENCOUNTER 2022-01-18 18:19 | Emergency (ER) | payer OTHER ==
[2022-01-18] MEDS ORDERED: METOCLOPRAMIDE 5 MG/ML 2 ML VIAL IVP STA ×2 (18:39→21:57)
[2022-01-18] MEDS ORDERED: SODIUM CHLORIDE 0.9% 1,000 ML IV STA (18:39)
[2022-01-18 19:04] VITALS: PULSE 93; TEMP 97.6
[2022-01-18] MEDS ORDERED: ACETAMINOPHEN IV (For NPO) 1,000 MG in EMPTY BAG 1 BAG IVPB STA (19:13)
[2022-01-18 19:17] LABS: Basophils % (A) 0 %; Eosinophils # (A) 0.2 k/uL (0-0.7); Eosinophils % (A) 1 %; HCT 37.4 % (34.0-46.0); HGB 12.6 gm/dL (11.4-16.0); Lymphocytes # (A) 1.8 k/uL (1.0-4.8); Lymphocytes % (A) 10 %; MCH 29.8 pg (25.0-35.0); MCHC 33.8 g/dL (31.0-37.0); MCV 88.2 fL (80.0-100.0); Mean Platelet Volume 8.7; Monocytes # (A) 0.7 k/uL (0-1.0); Monocytes % (A) 4 %; Neutrophils # (A) 15.5 k/uL (1.3-7.7); Neutrophils % (A) 84 %; Platelet Count 341 k/uL (150-450); RBC 4.23 m/uL (3.80-5.40); RDW 15.3 % (11.5-15.5); WBC 18.4 k/uL (3.8-10.6)
--- NOTE | 2022-01-18 19:22 | ED ---
General Adult HPI - General Chief complaint: Nausea/Vomiting/Diarrhea Stated complaint: nausea, vomiting, 15 wks preg Time Seen by Provider: 01/18/22 18:22 Source: EMS Mode of arrival: EMS Limitations: no limitations - History of Present Illness Initial comments: Dictation was produced using [employer] dictation software. please excuse any grammatical, word or spelling errors. Chief Complaint: 21-year-old female presents with 1 day of nausea vomiting diarrhea History of Present Illness: 21-year-old female she is allegedly 15 weeks pr egnant. She has been having care. Her engraver letter is Dr. Valles. Today she began having nausea vomiting diarrhea. States her emesis is bilious nonbloody. She also has been having watery diarrhea. States that her daughter had similar symptoms over the recent days. She does have some very mild cramping to her suprapubic area. She does feel chills but denies any fevers. The ROS documented in this emergency department record has been reviewed and confirmed by me. Those systems with pertinent positive or negative responses have been documented in the HPI. All other systems are other negative and/or noncontributory. PHYSICAL EXAM: General Impression: Alert and oriented x3, acute distress secondary to nausea and vomiting HEENT: Normocephalic atraumatic, extra-ocular movements intact, pupils equal and reactive to light bilaterally, mucous membranes moist. Cardiovascular: Heart regular rate and rhythm Chest: Able to complete full sentences, no retractions, no tachypnea Abdomen: abdomen soft, minimal palpatory tenderness to the suprapubic area, non- distended, no organomegaly Musculoskeletal: Pulses present and equal in all extremities, no peripheral edema Motor: no focal deficits noted Neurological: CN II-XII grossly intact, no focal motor or sensory deficits noted Skin: Intact with no visualized rashes Psych: Normal affect and mood ED course: 21-year-old female who is 15 weeks presents to the ER for nausea vomiting diarrhea. Isolation of symptomatology suggests that patient's symptoms are secondary to gastroenteritis. However she is 15 weeks and having suprapubic palpatory tenderness concerning for threatened . Chart review shows that patient had a ultrasound 22 days ago that showed intrauterine . Ultrasound suggests that placenta is 1.4 cm from the internal os suggesting possible placenta previa. Gestational age is 16 weeks. heart rate is 158 Laboratory evaluation shows leukocytosis 18.4, rest of CBC within acceptable limits. Metabolic panel shows mild acidosis at 20, glucose 118, magnesium 1.5. Patient given IV fluids, IV acetaminophen and Reglan. Patient reevaluated at the bedside states that she feels significantly better. Patient requesting COVID-19 testing before discharge. COVID-19 tests negative. Patient advised follow-up with engraver letter. Patient prescribed antiemetics. - Related Data Home Medications Medication Instructions Recorded Confirmed Pnv,Calcium 72/Iron/Folic Acid 1 tab PO DAILY 11/29/20 01/18/22 [ Plus Tablet] Previous Rx's Medication Instructions Recorded Doxylamine/Pyridoxine HCl (B6) 1 tab PO Q12H PRN #24 tab 01/18/22 [Dicleg[address] Dr 10-10 mg Tablet] Allergies Allergy/AdvReac Type Severity Reaction Status Date / Time No Known Allergies Allergy Verified 01/18/22 19:17 Review of Systems ROS Statement: Those systems with pertinent positive or pertinent negative responses have been documented in the HPI. ROS Other: All systems not noted in ROS Statement are negative. Past Medical History Past Medical History: No Reported History History of Any Multi-Drug Resistant Organisms: None Reported Past Surgical History: Cholecystectomy, Tonsillectomy Past Anesthesia/Blood Transfusion Reactions: No Reported Reaction Past Psychological History: ADD/ADHD Smoking Status: Former smoker Past Alcohol Use History: Occasional Past Drug Use History: None Reported - Past Family History Mother History Unknown: Yes Additional Family Medical History / Comment(s): pt states adopted does not know hx General Exam Limitations: no limitations Course Vital Signs 01/18/22 01/18/22 18:30 23:10 Temperature 97.6 F Pulse Rate 93 93 Respiratory 20 16 Rate Blood Pressure 118/73 117/75 O2 Sat by Pulse 98 100 Oximetry Medical Decision Making - Lab Data Result diagrams: 01/18/22 18:39 01/18/22 19:23 Lab Results 01/18/22 01/18/22 01/18/22 Range/Units 18:39 19:23 20:17 WBC 18.4 H (3.8-10.6) k/uL RBC 4.23 (3.80-5.40) m/uL Hgb 12.6 (11.4-16.0) gm/dL Hct 37.4 (34.0-46.0) % MCV 88.2 (80.0-100.0) fL MCH 29.8 (25.0-35.0) pg MCHC 33.8 (31.0-37.0) g/dL RDW 15.3 (11.5-15.5) % Plt Count 341 (150-450) k/uL MPV 8.7 Neutrophils % 84 % Lymphocytes % 10 % Monocytes % 4 % Eosinophils % 1 % Basophils % 0 % Neutrophils # 15.5 H (1.3-7.7) k/uL Lymphocytes # 1.8 (1.0-4.8) k/uL Monocytes # 0.7 (0-1.0) k/uL Eosinophils # 0.2 (0-0.7) k/uL Basophils # 0.0 (0-0.2) k/uL Sodium 136 L (137-145) mmol/L Potassium 4.1 (3.5-5.1) mmol/L Chloride 110 H (98-107) mmol/L Carbon Dioxide 20 L (22-30) mmol/L Anion Gap 6 mmol/L BUN 11 (7-17) mg/dL Creatinine 0.46 L (0.52-1.04) mg/dL Est GFR (CKD-EPI)AfAm >90 (>60 ml/min/1.73 sqM) Est GFR (CKD-EPI)NonAf >90 (>60 ml/min/1.73 sqM) Glucose 118 H (74-99) mg/dL Calcium 7.6 L (8.4-10.2) mg/dL Magnesium 1.5 L (1.6-2.3) mg/dL HCG, Quant 96295.2 mIU/mL Urine Color Urine Appearance (Clear) Urine pH (5.0-8.0) Ur Specific Winder (1.001-1.035) Urine Protein (Negative) Urine Glucose (UA) (Negative) Urine Ketones (Negative) Urine Blood (Negative) Urine Nitrite (Negative) Urine Bilirubin (Negative) Urine Urobilinogen (<2.0) mg/dL Ur Leukocyte Esterase (Negative) Coronavirus (PCR) (Not Detectd) Blood Type O Positive Blood Type Recheck O Pos Bld Type Recheck Status No Antibody Screen NEGATIVE Spec Expiration Date 01/21/2022231601/18/22 01/18/22 Range/Units 22:54 22:54 WBC (3.8-10.6) k/uL RBC (3.80-5.40) m/uL Hgb (11.4-16.0) gm/dL Hct (34.0-46.0) % MCV (80.0-100.0) fL MCH (25.0-35.0) pg MCHC (31.0-37.0) g/dL RDW (11.5-15.5) % Plt Count (150-450) k/uL MPV Neutrophils % % Lymphocytes % % Monocytes % % Eosinophils % % Basophils % % Neutrophils # (1.3-7.7) k/uL Lymphocytes # (1.0-4.8) k/uL Monocytes # (0-1.0) k/uL Eosinophils # (0-0.7) k/uL Basophils # (0-0.2) k/uL Sodium (137-145) mmol/L Potassium (3.5-5.1) mmol/L Chloride (98-107) mmol/L Carbon Dioxide (22-30) mmol/L Anion Gap mmol/L BUN (7-17) mg/dL Creatinine (0.52-1.04) mg/dL Est GFR (CKD-EPI)AfAm (>60 ml/min/1.73 sqM) Est GFR (CKD-EPI)NonAf (>60 ml/min/1.73 sqM) Glucose (74-99) mg/dL Calcium (8.4-10.2) mg/dL Magnesium (1.6-2.3) mg/dL HCG, Quant mIU/mL Urine Color Yellow Urine Appearance Clear (Clear) Urine pH 7.5 (5.0-8.0) Ur Specific Winder 1.022 (1.001-1.035) Urine Protein Negative (Negative) Urine Glucose (UA) Negative (Negative) Urine Ketones 3+ H (Negative) Urine Blood Negative (Negative) Urine Nitrite Negative (Negative) Urine Bilirubin Negative (Negative) Urine Urobilinogen <2.0 (<2.0) mg/dL Ur Leukocyte Esterase Negative (Negative) Coronavirus (PCR) Not Detected (Not Detectd) Blood Type Blood Type Recheck Bld Type Recheck Status Antibody Screen Spec Expiration Date Disposition Clinical Impression: Gastroenteritis Disposition: HOME SELF-CARE Condition: Fair Instructions (If sedation given, give patient instructions): Acute Diarrhea (ED) Prescriptions: Doxylamine/Pyridoxine HCl (B6) [Garett Olivares 10-10 mg Tablet] 1 tab PO Q12H PRN #24 tab PRN Reason: Nausea And Vomiting Is patient prescribed a controlled substance at d/c from ED?: No Referrals: Jolly Valles DO [Doctor of Osteopathic Medicine] - 1-2 days
[2022-01-18 19:43] LABS: African American GFR (CKD) >90 (>60 ml/min/1.73 sqM); Anion Gap 6 mmol/L; Blood Urea Nitrogen 11 mg/dL (7-17); Calcium 7.6 mg/dL (8.4-10.2); Carbon Dioxide 20 mmol/L (22-30); Chloride 110 mmol/L (98-107); Glucose 118 mg/dL (74-99); Magnesium 1.5 mg/dL (1.6-2.3); Non-African American GFR(CKD) >90 (>60 ml/min/1.73 sqM); Potassium 4.1 mmol/L (3.5-5.1); Sodium 136 mmol/L (137-145)
[2022-01-18 20:25] LABS: HCG,Quantitative Serum 38888.2 mIU/mL
--- NOTE | 2022-01-18 21:27 | US ---
EXAMINATION TYPE: US OB >= 14 wk fetus DATE OF EXAM: 01/18/2022 COMPARISON: US CLINICAL HISTORY: pelvic pain Pelvic pain. . TECHNIQUE: Transabdominal (TA) GESTATIONAL AGE / DATING Physician Established: Not yet established, one prior ultrasound here. Dates by LMP: Unknown Dates by First Scan: (15 weeks/4 days) EDC: 07/08/2022 Dates by Current Scan: (16 weeks/0 days) EDC: 07/05/2022 Beta HCG (if available): 38,888.2 mIU/mL SURVEY IUP: Single PLACENTA: Posterior. Hyperechoic focus visualized that appears to be attached to the placenta: 0.4 x 0.5 x 0.3 cm. PREVIA: Possible low Lying- limited due to bladder not fully distended. Placental tip appears to be 1.4 cm from internal os. TRACI: 10.44 cm Normal CERVICAL LENGTH (transabdominal: norm > 3.0cm): 3.19 cm BIOMETRY PRESENTATION: Vertex BPD: 3.28 cm 16 weeks / 1 day HC: 11.84 cm 15 weeks / 6 days AC: 9.80 cm 15 weeks / 6 days FL: 1.76 cm 15 weeks / 1 day ESTIMATED WEIGHT IN GRAMS: 128.93 grams ESTIMATED WEIGHT IN LBS/OZ: 0 lbs. 5 oz. WEIGHT PERCENTAGE BASED ON ESTABLISHED DATES: 40.8% HC/AC: 1.21 Normal FL/AC: 17.98 - HEART RATE: 158 bpm RHYTHM: Normal *?Questionable skull contour versus normal appearance/shape- exam not an anatomy scan. Limited imagin g. IMPRESSION: The ultrasound gestational age is 16 weeks. The TRICIA is 07/05/2022. On the sagittal images placenta is 1.4 cm from the internal cervical os.
[2022-01-18 23:07] LABS: Appearance,Urine Clear (Clear); Bilirubin,Urine Negative (Negative); Blood,Urine Negative (Negative); Color,Urine Yellow; Glucose,Urine (UA) Negative (Negative); Leukocyte Esterase,Urine Negative (Negative); Nitrite,Urine Negative (Negative); PH, Urine 7.5 (5.0-8.0); Protein,Urine Negative (Negative); Specific Gravity,Urine 1.022 (1.001-1.035); Urobilinogen,Urine <2.0 mg/dL (<2.0)
[2022-01-18 23:10] LABS: Ketones,Urine 3+ (Negative)
[2022-01-18 23:11] VITALS: BP 117/75; RESP 16
[2022-01-18] MEDS: MAGNESIUM OXIDE 400 MG TAB PO STA ×2 (23:53→23:57)
== END 2022-01-19 00:02 | disposition home or self-care (01) ==
LOC: EC 18:19
DX: O99.612 Diseases of the digestive system complicating pregnancy, second trimester (principal); K52.9 Noninfective gastroenteritis and colitis, unspecified; F17.200 Nicotine dependence, unspecified, uncomplicated; Z20.822 Contact with and (suspected) exposure to COVID-19; Z3A.16 16 weeks gestation of pregnancy
CPT/HCPCS: 36415; 86900; 86901; 80048; 83735; 85025; 86850; 81003; 84702; 87635; 76805; 99284; 96365; 96375; 96376; 96361; J2765; J0131

== ENCOUNTER 2022-03-26 14:53 | Outpatient (CLI) | payer OTHER ==
[2022-03-26 15:48] VITALS: BP 114/63; PULSE 101; RESP 18; TEMP 97.6
[2022-03-26 16:17] LABS: Appearance,Urine Clear (Clear); Bacteria,Urine Many /hpf; Bilirubin,Urine Negative (Negative); Blood,Urine Negative (Negative); Color,Urine Light Yellow; Glucose,Urine (UA) Negative (Negative); Ketones,Urine Negative (Negative); Leukocyte Esterase,Urine Small (Negative); Mucus,Urine Rare /hpf; Nitrite,Urine Negative (Negative); Protein,Urine Negative (Negative); Specific Gravity,Urine 1.003 (1.001-1.035); Squamous Epithelial Cell,Urine <1 /hpf (0-4); Urobilinogen,Urine <2.0 mg/dL (<2.0); WBC,Urine 2 /hpf (0-5)
--- NOTE | 2022-04-04 21:11 | P.MSEPDOC ---
Presenting Problems - Arrival Data Date of Arrival on Unit: 03/26/22 Time of Arrival on Unit: 14:53 Mode of Transport: Ambulatory - Complaint OB-Reason for Admission/Chief Complaint: Pain Comment: "on and off lower back pain and vag pain. Occasionally shooting up spine. Starting this morning." Medical History - Information : 2 Para: 1 Term: 1 : 0 Abortions: Spontaneous or Elective: 0 Number of Living Children: 1 - Gestational Age Gestational Age by TRICIA (wks/days): 25 Weeks and 1 Days Review of Systems - Review of Systems Constitutional: No problems Breast: No problems ENT: No problems Cardiovascular: No problems Respiratory: No problems Gastrointestinal: No problems Genitourinary: No problems Musculoskeletal: No problems Neurological: No problems Skin: No problems Vital Signs - Temperature Temperature: 97.6 F Temperature Source: Temporal Artery Scan - Pulse Right Pulse Rate: 101 Pulse Assessment Method: Pulse Oximetry - Respirations Respiratory Rate: 18 Oxygen Delivery Method: Room Air - Blood Pressure Right Arm Blood Pressure: 114/63 Blood Pressure Mean: 80 Blood Pressure Source: Automatic Cuff Medical Screen Scoring - Assessment - Baby A Baseline FHR: 150 NST: Reactive Physician Notification - Physician Notified Physician Notified Date: 03/26/22 Physician Notified Time: 16:21 Physician: Hoda Malhotra Order Received: Yes (discharge home with instructions.) - Notification Comment Comment: Follow up with Hai in office. ABD support binder and limit extensive walking. Maternal Triage Index - Maternal Triage Index Presenting for scheduled procedure w/no complaint: No - Stat/Priority 1 Stat Priority 1: No - Urgent/Priority 2 Urgent Priority 2: No - Prompt/Priority 3 Prompt Priority 3: No - Non-Urgent/Priority 4 Non-Urgent Priority 4: No - Scheduled/Requesting Priority 5 Scheduled/Requesting Priority 5: Yes Criteria Met for Priority 5: "on and off lower back pain and vag pain. Occasionally shooting up spine. Starting this morning." Disposition - Disposition OB Disposition: Triage Discharge Date: 03/26/22 Discharge Time: 16:28 I agree with the RN Medical Screening Exam: Yes Case reviewed; plan agreed upon as documented in EMR&OBIX.: Yes Diagnosis: RELATED CONDITIONS, UNSPECIFIED, SECOND TRIMESTER
== END 2022-03-26 16:28 | disposition home or self-care (01) ==
LOC: FBPOP 14:53
PROVIDERS: ATTEND Obstetrics & Gynecology
DX: O26.92 Pregnancy related conditions, unspecified, second trimester (principal); Z3A.25 25 weeks gestation of pregnancy
CPT/HCPCS: 81001; G0463; 99213

== ENCOUNTER 2022-06-19 00:40 | Inpatient (IN) | payer OTHER ==
[2022-06-19] MEDS ORDERED: METHYLERGONOVINE 0.2 MG/ML 1 ML AMP IM PRN (02:10)
[2022-06-19] MEDS ORDERED: CARBOPROST TROMETHAMINE 250 MCG/ML 1 ML AMP IM PRN (02:10)
[2022-06-19] MEDS ORDERED: TERBUTALINE 1 MG/ML VIAL SQ PRN (02:10)
[2022-06-19] MEDS ORDERED: LIDOCAINE 0.5% (PF) 5 MG/ML (50 ML SDV) SQ PRN (02:10)
[2022-06-19] MEDS ORDERED: OXYTOCIN 10 UNIT/ML 1 ML VIAL IM PRN (02:10)
[2022-06-19] MEDS ORDERED: AMPICILLIN 2,000 MG in SODIUM CHLORIDE 0.9% 100 ML IVPB STA (02:22)
[2022-06-19] MEDS: LACTATED RINGERS 1,000 ML IV SCH ×2 (02:46→04:08)
[2022-06-19 02:53] LABS: Basophils # (A) 0.1 k/uL (0-0.2); Basophils % (A) 0 %; Eosinophils # (A) 0.3 k/uL (0-0.7); Eosinophils % (A) 3 %; HCT 36.3 % (34.0-46.0); HGB 11.5 gm/dL (11.4-16.0); Hypochromasia Slight; Lymphocytes # (A) 2.5 k/uL (1.0-4.8); Lymphocytes % (A) 21 %; MCH 29.1 pg (25.0-35.0); MCHC 31.7 g/dL (31.0-37.0); Mean Platelet Volume 8.1; Monocytes # (A) 0.6 k/uL (0-1.0); Monocytes % (A) 5 %; Neutrophils # (A) 8.1 k/uL (1.3-7.7); Neutrophils % (A) 69 %; Platelet Count 268 k/uL (150-450); RBC 3.95 m/uL (3.80-5.40); RDW 14.2 % (11.5-15.5); WBC 11.7 k/uL (3.8-10.6)
--- NOTE | 2022-06-19 02:59 | P.HPOB ---
History of Present Illness H&P Date: 06/19/22 Chief Complaint: Leaking of fluid since yesterday, contractions This patient is a 21-year-old 2 para 1 female estimated date of confinement 07/08/2022 estimated gestational age 37-2/7 weeks who presents to labor and delivery with complaints of leaking since about noon yesterday. Patient began having contractions in the middle this evening and therefore presents to labor and delivery for evaluation. Patient's care has been complicated by noncompliance. She had a lapse in care from 28-37 weeks which she states was due to "transportation problems". She also had some echogenic cardiac focus for which she was seen by maternal medicine for one visit and had a normal cardiac echo. Patient is now 3-4 cm dilated with positive amnio sure thought to be ruptured in early labor. Review of Systems Genitourinary: Reports as per HPI, Reports Menstruation: Reports amenorrhea Past Medical History Past Medical History: No Reported History History of Any Multi-Drug Resistant Organisms: None Reported Past Surgical History: Cholecystectomy, Tonsillectomy Past Anesthesia/Blood Transfusion Reactions: No Reported Reaction Past Psychological History: Depression Smoking Status: Never smoker Past Alcohol Use History: None Reported Past Drug Use History: None Reported - Past Family History Mother History Unknown: Yes Additional Family Medical History / Comment(s): pt states adopted does not know hx Medications and Allergies Home Medications Medication Instructions Recorded Confirmed Type Vit No.180/Iron/Folic 1 tab PO DAILY 11/29/20 06/19/22 History [ Plus Tablet] Allergies Allergy/AdvReac Type Severity Reaction Status Date / Time No Known Allergies Allergy Verified 06/19/22 00:43 Exam Vital Signs Temp Pulse Resp BP Pulse Ox 06/19/22 00:43 97.6 F 68 16 120/78 100 Intake and Output 06/18/22 06/18/22 06/19/22 14:59 22:59 06:59 Other: Weight 64.41 kg - OBG Physical Exam Abdomen: bowel sounds normal, no diffuse tenderness, no bruit present, no guarding noted, no hepatomegaly, no splenomegaly, no mass Vulva: both: normal Vagina: normal moisture, no discharge Cervix: no lesion (Cervix is 3-490% effaced -2 station vertex.), no discharge Uterus: enlarged Results labs show she is O positive, rubella immune, RPR nonreactive, hepatitis B negative, HIV is nonreactive, group B strep was just done due to lapse in care. Patient also missed her last ultrasound. Result Diagrams: 06/19/22 02:40 Abnormal Lab Results - Last 24 Hours (Table) 06/19/22 Range/Units 02:40 WBC 11.7 H (3.8-10.6) k/uL Neutrophils # 8.1 H (1.3-7.7) k/uL Assessment and Plan Assessment: This is a 21-year-old 2 para 1 female 37-2/7 weeks gestation with prolonged premature rupture membranes and now labor. Patient's also had noncompliance with care. Plan is admission and IV antibiotics, do a toxicology screen due to noncompliance, and at this time anticipate vaginal delivery. (1) 37 weeks gestation of Current Visit: Yes Status: Acute Code(s): Z3A.37 - 37 WEEKS GESTATION OF SNOMED Code(s): 17096042 (2) Prolonged premature rupture of membranes Current Visit: Yes Status: Acute Code(s): O42.10 - LENIN ROM, ONSET LABOR > 24 HR FOL RUPT, UNSP WEEKS OF GEST SNOMED Code(s): 061383979 (3) Non-compliant patient Current Visit: Yes Status: Acute Code(s): O09.899 - SUPERVISION OF OTHER HIGH RISK PREGNANCIES, UNSP TRIMESTER; Z91.19 - PATIENT'S NONCOMPLIANCE W OTH MEDICAL TREATMENT AND REGIMEN SNOMED Code(s): 1863283
[2022-06-19] MEDS ORDERED: LANOLIN CREAM 5 GM TUBE TOPICAL PRN (05:10)
[2022-06-19] MEDS ORDERED: ZOLPIDEM 5 MG TAB PO PRN (05:10)
[2022-06-19] MEDS ORDERED: diphenhydrAMINE 25 MG CAP PO PRN (05:10)
[2022-06-19] MEDS ORDERED: HYDROCORTISONE 2.5% RECTAL CREAM 30 GM TUBE RECTAL PRN (05:10)
[2022-06-19] MEDS ORDERED: BENZOCAINE/MENTHOL SPRAY 1 GM/SPRAY AEROSOL TOPICAL PRN (05:10)
[2022-06-19] MEDS ORDERED: diphenhydrAMINE 50 MG/ML 1 ML VIAL IVP PRN (05:10)
[2022-06-19] MEDS ORDERED: SIMETHICONE 80 MG CHEWABLE PO PRN (05:10)
[2022-06-19] MEDS ORDERED: bisacodyL 10 MG SUPP RECTAL PRN (05:10)
--- NOTE | 2022-06-19 05:14 | P.PROBDLV ---
Vaginal Delivery Note - . Vaginal Delivery Note: Normal spontaneous vaginal delivery viable female Apgars 9 and 9 delivery time was 0459 hours. Please see dictated H&P for intimate details of this patient's admission. Brief summary this is a 21-year-old 2 para 1 female 37-2/7 weeks gestation admitted to labor and delivery with ruptured membranes since noon yesterday and onset of contractions last evening. Patient's also had quite a lapse in her care. Due to unknown group B strep status, antibiotics as started. Patient does request an epidural for pain control and this is given with relief. Patient's labor progresses thereafter and she gets to complete. Patient pushes the head to the perineum the posterior perineum was supported. We have controlled delivery of the infant's head over the intact perineum. Mouth and nares are bulb suctioned. Infant then spontaneously delivers the anterior and posterior shoulder and rest this 's body. Is a vigorous viable female Apgars 9 and 9 delivery time was 0459 hours. After delivery of the infant the umbilical cord is doubly clamped and cut appears to be trivascular. is late on the mother's abdomen. The placenta is then spontaneously delivered intact. Placenta does have some discoloration to it. Inspection of perineum shows no lacerations and no repairs required. Infant and mother stable in delivery room.
[2022-06-19] MEDS ORDERED: OXYTOCIN 30 UNITS/500 ML NS 30 UNIT in SALINE 1 500ML.BAG IV SCH (05:15)
[2022-06-19] MEDS ORDERED: ROPIVACAINE 100 MG, fentaNYL (PF). 200 MCG in SODIUM CHLORIDE 0.9% 76 ML EPIDURAL ONE (06:11)
[2022-06-19] MEDS ORDERED: AMPICILLIN 1,000 MG in SODIUM CHLORIDE 0.9% 50 ML IVPB SCH (06:30)
[2022-06-19 08:10] LABS: Amphetamine Screen,Urine Not Detected (NotDetected); Barbiturate Screen,Urine Not Detected (NotDetected); Benzodiazepines Screen,Urine Not Detected (NotDetected); Cocaine Screen,Urine Not Detected (NotDetected); Methadone Screen, Urine Not Detected (NotDetected); Opiate Screen,Urine Not Detected (NotDetected); Oxycodone Screen, Urine Not Detected (NotDetected); Phencyclidine Screen,Urine Not Detected (NotDetected); Tricyclic Antidepressant,Urine Not Detected (NotDetected); Urn Cannabinoid Scrn Detected (NotDetected)
[2022-06-19] MEDS ORDERED: ONDANSETRON 4 MG/2 ML VIAL IVP PRN (08:26)
[2022-06-19] MEDS: IBUPROFEN 600 MG TAB PO PRN ×2 (08:32→21:04)
[2022-06-19] MEDS: SENNOSIDES-DOCUSATE SODIUM 1 EACH TAB PO SCH ×2 (08:33→21:04)
[2022-06-20] MEDS: ACETAMINOPHEN TAB 325 MG TAB PO PRN ×2 (04:27→16:04)
[2022-06-20 06:53] LABS: Basophils % (A) 0 %; Eosinophils # (A) 0.2 k/uL (0-0.7); Eosinophils % (A) 2 %; Hypochromasia Slight; Lymphocytes # (A) 2.5 k/uL (1.0-4.8); Lymphocytes % (A) 22 %; MCH 29.6 pg (25.0-35.0); MCHC 32.3 g/dL (31.0-37.0); MCV 91.5 fL (80.0-100.0); Mean Platelet Volume 8.7; Monocytes # (A) 0.7 k/uL (0-1.0); Monocytes % (A) 6 %; Neutrophils # (A) 7.6 k/uL (1.3-7.7); Neutrophils % (A) 68 %; Platelet Count 249 k/uL (150-450); RBC 3.72 m/uL (3.80-5.40); RDW 14.1 % (11.5-15.5); WBC 11.1 k/uL (3.8-10.6)
[2022-06-20] MEDS: SENNOSIDES-DOCUSATE SODIUM 1 EACH TAB PO SCH ×2 (08:15→20:12)
--- NOTE | 2022-06-20 08:23 | P.PNOBGVD ---
Subjective - Subjective Principal diagnosis: Status post normal vaginal delivery day #1 Interval history: Patient seen and examined at bedside. Baby was sleeping in the crib patient came over to the baby lifted up and put a bottle in its mouth. Baby was still crying and mom was not really paying attention to the baby bowel she was talking to me and try to get the baby to take the bottle. Patient seems to be ambulating around the room without difficulty. She says her pain is under control. Patient denies nausea, vomiting, chest pain, shortness of breath or any calf pain. Patient reports: Reports appetite normal, Reports voiding normally, Reports pain well controlled, Reports ambulating normally [place]: doing well Objective - Latest Vital Signs Latest vital signs: Vital Signs Temp Pulse Resp BP Pulse Ox 06/20/22 08:00 98.3 F 69 16 103/71 06/20/22 04:00 98.5 F 66 18 122/76 06/20/22 00:00 98.6 F 144 H 18 140/69 06/19/22 20:00 98.4 F 66 18 119/83 06/19/22 16:00 97.7 F 65 16 103/68 06/19/22 11:56 97.8 F 62 18 107/66 98 Intake and Output 06/19/22 06/20/22 06/20/22 22:59 06:59 14:59 Other: # Voids 1 2 2 - Exam Lungs: bilateral: normal Chest: Normal S1, Normal S2 Extremities: Present: normal Abdomen: Present: normal appearance, soft Uterus: Present: normal, firm - Labs Labs: Abnormal Lab Results - Last 24 Hours (Table) 06/20/22 Range/Units 06:38 WBC 11.1 H (3.8-10.6) k/uL RBC 3.72 L (3.80-5.40) m/uL Hgb 11.0 L (11.4-16.0) gm/dL Assessment and Plan (1) Normal vaginal delivery Current Visit: No Status: Acute Code(s): O80 - ENCOUNTER FOR FULL-TERM UNCOMPLICATED DELIVERY SNOMED Code(s): 29999828 Plan: 1. Increase ambulation 2. Continue care
[2022-06-20] MEDS: IBUPROFEN 600 MG TAB PO PRN (20:12)
[2022-06-21 05:59] VITALS: RESP 16
--- NOTE | 2022-06-21 08:08 | P.DS ---
Providers Date of admission: 06/19/22 02:03 Expected date of discharge: 06/21/22 Attending physician: Jolly Valles Primary care physician: Stated None - Discharge Diagnosis(es) (1) Normal vaginal delivery Current Visit: No Status: Acute Hospital Course: She presented in active labor. She underwent a normal vaginal delivery. course is Clear. She denies nausea, vomiting, chest pain, shortness of breath or any calf pain. Patient will be discharged home day #2 in stable condition to follow-up with me in 6 weeks. Plan - Discharge Summary New Discharge Prescriptions: New Ibuprofen [Motrin] 600 mg PO Q6HR PRN #30 tab PRN Reason: Mild Pain (Scale 1 To 3) No Action Vit No.180/Iron/Folic [ Plus Tablet] 1 tab PO DAILY Discharge Medication List Vit No.180/Iron/Folic [ Plus Tablet] 1 tab PO DAILY 11/29/20 [History] Ibuprofen [Motrin] 600 mg PO Q6HR PRN #30 tab 06/21/22 [Rx] Follow up Appointment(s)/Referral(s): Jolly Valles DO [Doctor of Osteopathic Medicine] - 08/01/22 3:45 pm Discharge Disposition: HOME SELF-CARE
[2022-06-21] MEDS: SENNOSIDES-DOCUSATE SODIUM 1 EACH TAB PO SCH (08:35)
[2022-06-21 08:40] VITALS: BP 118/74; PULSE 72; TEMP 98.2
== END 2022-06-21 14:40 | disposition home or self-care (01) | DRG 807 ==
LOC: FBPOP 00:40 → 4FBP 02:03
PROVIDERS: ADMIT Obstetrics & Gynecology; ATTEND Obstetrics & Gynecology
PROC: 10E0XZZ Delivery of Products of Conception, External Approach (ICD-10-PCS; principal; 2022-06-19)
DX: O42.92 Full-term premature rupture of membranes, unspecified as to length of time between rupture and onset of labor (principal); Z37.0 Single live birth; O99.344 Other mental disorders complicating childbirth; F32.A Depression, unspecified; Z3A.37 37 weeks gestation of pregnancy; Z91.19 Patient's noncompliance with other medical treatment and regimen; Z28.310 Unvaccinated for COVID-19
CPT/HCPCS: 59025; 80306; 84112; 85025; 86850; 86900; 86901; 88307; 99213

== ENCOUNTER 2023-10-04 06:00 | Inpatient (IN) | payer OTHER ==
[2023-10-04] MEDS ORDERED: TERBUTALINE 1 MG/ML VIAL SQ PRN (06:38)
[2023-10-04] MEDS ORDERED: METHYLERGONOVINE 0.2 MG/ML 1 ML AMP IM PRN (06:38)
[2023-10-04] MEDS ORDERED: OXYTOCIN 10 UNIT/ML 1 ML VIAL IM PRN (06:38)
[2023-10-04] MEDS ORDERED: TRANEXAMIC 1,000 MG/100ML-NACL 1,000 MG in EMPTY BAG 1 BAG IV PRN (06:38)
[2023-10-04] MEDS ORDERED: CARBOPROST TROMETHAMINE 250 MCG/ML 1 ML AMP IM PRN (06:38)
[2023-10-04] MEDS ORDERED: miSOPROStoL 200 MCG TAB PO PRN (06:38)
[2023-10-04] MEDS ORDERED: LIDOCAINE 0.5% (PF) 5 MG/ML (50 ML SDV) SQ PRN (06:38)
[2023-10-04] MEDS ORDERED: OXYTOCIN 30 UNITS/500 ML NS 30 UNIT in SALINE 1 500ML.BAG IV SCH (06:45)
[2023-10-04] MEDS: LACTATED RINGERS 1,000 ML IV SCH ×2 (06:58→13:14)
[2023-10-04 07:03] LABS: Amphetamine Screen,Urine Not Detected (NotDetected); Barbiturate Screen,Urine Not Detected (NotDetected); Benzodiazepines Screen,Urine Not Detected (NotDetected); Cocaine Screen,Urine Not Detected (NotDetected); Methadone Screen, Urine Not Detected (NotDetected); Opiate Screen,Urine Not Detected (NotDetected); Oxycodone Screen, Urine Not Detected (NotDetected); Phencyclidine Screen,Urine Not Detected (NotDetected); Tricyclic Antidepressant,Urine Not Detected (NotDetected); Urn Cannabinoid Scrn Detected (NotDetected)
[2023-10-04 07:46] LABS: Basophils % (A) 0 %; Eosinophils # (A) 0.4 k/uL (0-0.7); Eosinophils % (A) 3 %; HCT 35.8 % (34.0-46.0); HGB 12.2 gm/dL (11.4-16.0); Lymphocytes # (A) 2.9 k/uL (1.0-4.8); Lymphocytes % (A) 26 %; MCH 32.2 pg (25.0-35.0); MCHC 34.3 g/dL (31.0-37.0); Mean Platelet Volume 8.5; Monocytes # (A) 0.7 k/uL (0-1.0); Monocytes % (A) 6 %; Neutrophils # (A) 6.8 k/uL (1.3-7.7); Neutrophils % (A) 62 %; Platelet Count 259 k/uL (150-450); RDW 12.8 % (11.5-15.5)
--- NOTE | 2023-10-04 09:01 | P.HPOB ---
History of Present Illness H&P Date: 10/04/23 Chief Complaint: Medical induction of labor Ms. Jones is a 22 year old at 37 weeks and 0 days gestation with EDC of 10/25/2023 (by LMP consistent with 15 week US) who presents to labor and delivery for medical induction of labor for IUGR (AC in the 9%ile) with elevated umbilical artery dopplers. The was also complicated by scant care. The patient herself has a history of anxiety and depression, not currently on any medications. Obstetric history: 1 full-term vaginal delivery and once vaginal delivery at 35 weeks. Social history: Patient has lost custody of her two children and is in the process of regaining custody Past Medical History Past Medical History: No Reported History Additional Past Medical History / Comment(s): low iron History of Any Multi-Drug Resistant Organisms: None Reported Past Surgical History: No Surgical Hx Reported Past Anesthesia/Blood Transfusion Reactions: No Reported Reaction Past Psychological History: Depression Smoking Status: Former smoker Past Alcohol Use History: None Reported Past Drug Use History: None Reported - Past Family History Mother History Unknown: Yes Additional Family Medical History / Comment(s): pt states adopted does not know hx Medications and Allergies Home Medications Medication Instructions Recorded Confirmed Type Vit No.180/Iron/Folic 1 tab PO DAILY 11/29/20 10/04/23 History [ Plus Tablet] Allergies Allergy/AdvReac Type Severity Reaction Status Date / Time No Known Allergies Allergy Verified 06/19/22 00:43 Exam Vital Signs Temp Pulse Resp BP 10/04/23 07:41 97.0 F L 77 16 117/68 Intake and Output 10/03/23 10/04/23 10/04/23 22:59 06:59 14:59 Other: Weight 64.41 kg 64.41 kg Focused physical exam is performed. This is a healthy-appearing in no apparent distress. Breathing is non-labored. Abdomen is gravid and non-tender. Cervical exam is 1 cm, 30 effacement, -3 station. AROM is undertaken with clear fluid noted. Extremities non-tender and non-edematous. heart tones are Category I and tocometer is graphing irregularly. Results Result Diagrams: 10/04/23 07:23 Abnormal Lab Results - Last 24 Hours (Table) 10/04/23 10/04/23 Range/Units 06:30 07:23 WBC 11.0 H (3.8-10.6) k/uL U Marijuana (THC) Screen Detected H (NotDetected) Assessment and Plan Assessment: 22 year old at 37 weeks gestation presenting for medical induction of labor for IUGR with elevated umbilical artery dopplers Plan: Admit, pitocin titrated per protocol, epidural prn, anticipate vaginal delivery
--- NOTE | 2023-10-04 16:27 | P.PROBDLV ---
Vaginal Delivery Note - . Vaginal Delivery Note: DATE OF SERVICE: 10/04/2023 PROCEDURE: Normal Vaginal Delivery ATTENDING: Dr. Bettina Edgar MD ESTIMATED BLOOD LOSS: 300 mL FINDINGS: VFI, Apgars 8/9. Weight 5 pounds and 11 ounces (2656 grams) PROCEDURE: Ms. Platt is a 22year old at 37 weeks presenting to labor and delivery for medical induction of labor for IUGR with elevated umbilical artery dopplers. For further details, please review the admitting H&P. Pitocin was titrated per protocol. AROM was undertaken at 820 revealing meconium stained fluid. The patient was completely dilated at 1613. She pushed effectively with Category I to II heart tones. A viable female was delivered at 1613. The infant was placed on the maternal abdomen and bulb suctioned. The infant was noted to be spontaneously crying. Cord was clamped and cut after a 30-second delay. The infant was handed off to the pediatric team. Placenta was delivered whole with gentle cord traction at 1617. Oxytocin was started to facilitate uterine tone. Uterine fundus was found to be firm and below the umbilicus upon fundal massage. Thorough examination of the cervix, vagina, periurethral area, and perineum revealed no lacerations. The patient is stable and allowed to begin the bonding process.
[2023-10-04] MEDS ORDERED: BENZOCAINE/MENTHOL SPRAY 1 GM/SPRAY AEROSOL TOPICAL PRN (17:16)
[2023-10-04] MEDS ORDERED: LANOLIN CREAM 5 GM TUBE TOPICAL PRN (17:16)
[2023-10-04] MEDS ORDERED: ZOLPIDEM 5 MG TAB PO PRN (17:16)
[2023-10-04] MEDS ORDERED: HYDROCORTISONE 2.5% RECTAL CREAM 30 GM TUBE RECTAL PRN (17:16)
[2023-10-04] MEDS ORDERED: ACETAMINOPHEN TAB 325 MG TAB PO PRN (17:16)
[2023-10-04] MEDS ORDERED: diphenhydrAMINE 25 MG CAP PO PRN (17:16)
[2023-10-04] MEDS ORDERED: diphenhydrAMINE 50 MG CAP PO PRN (17:16)
[2023-10-04] MEDS ORDERED: SIMETHICONE 80 MG CHEWABLE PO PRN (17:16)
[2023-10-04] MEDS ORDERED: diphenhydrAMINE 50 MG/ML 1 ML VIAL IVP PRN ×2 (17:16)
[2023-10-04] MEDS: IBUPROFEN 600 MG TAB PO PRN (17:48)
[2023-10-04] MEDS: SENNOSIDES-DOCUSATE SODIUM 1 EACH TAB PO SCH (21:36)
[2023-10-05] MEDS: IBUPROFEN 600 MG TAB PO PRN ×3 (00:04→20:45)
[2023-10-05 07:26] LABS: Basophils # (A) 0.1 k/uL (0-0.2); Basophils % (A) 0 %; Eosinophils # (A) 0.1 k/uL (0-0.7); Eosinophils % (A) 1 %; HCT 36.7 % (34.0-46.0); HGB 11.6 gm/dL (11.4-16.0); Lymphocytes # (A) 3.6 k/uL (1.0-4.8); Lymphocytes % (A) 21 %; MCHC 31.6 g/dL (31.0-37.0); MCV 94.7 fL (80.0-100.0); Mean Platelet Volume 8.3; Monocytes # (A) 1.1 k/uL (0-1.0); Monocytes % (A) 6 %; Neutrophils # (A) 12.1 k/uL (1.3-7.7); Neutrophils % (A) 70 %; Platelet Count 270 k/uL (150-450); RBC 3.87 m/uL (3.80-5.40); RDW 12.8 % (11.5-15.5); WBC 17.4 k/uL (3.8-10.6)
[2023-10-05] MEDS: SENNOSIDES-DOCUSATE SODIUM 1 EACH TAB PO SCH ×2 (08:22→20:47)
--- NOTE | 2023-10-05 10:06 | P.PNOBGVD ---
Subjective - Subjective Principal diagnosis: s/p normal vaginal delivery Interval history: The patient is doing well this morning and had no acute events overnight. She has no complaints this morning. She reports minimal lochia, passing flatus, voiding without difficulty, ambulating, and eating/drinking without nausea or vomiting. She is her without difficulty. She denies chest pain, shortness of breathing, fevers, or chills overnight. She denies pain or swelling in the legs. Patient reports: Reports appetite normal, Reports voiding normally, Reports pain well controlled, Reports ambulating normally [place]: doing well, nursing well Objective - Latest Vital Signs Latest vital signs: Vital Signs Temp Pulse Resp BP Pulse Ox 10/05/23 08:00 98.6 F 69 16 97/57 10/05/23 04:00 97.5 F L 80 16 90/52 98 10/05/23 00:00 98.0 F 86 16 100/66 98 10/04/23 20:00 98.6 F 73 16 113/71 10/04/23 18:25 97.8 F 74 16 106/68 10/04/23 17:55 68 16 118/73 10/04/23 17:25 78 16 126/83 10/04/23 17:10 76 16 117/71 10/04/23 16:55 103 H 16 121/75 10/04/23 16:40 96 16 111/68 10/04/23 16:25 97.6 F 81 16 139/60 Intake and Output 10/04/23 10/05/23 10/05/23 22:59 06:59 14:59 Intake Total 15.567 Output Total 150 Balance -134.433 Intake: Intake, IV Titration 15.567 Amount Oxytocin 30 Units/500 ml 15.567 Ns 30 unit In Saline 1 500ml.bag @ Per Protocol IV .Q0M [facility] Rx#:[id number] Output: Output, Quantitative 150 Blood Loss Other: Voiding Method Toilet # Voids 1 2 1 - Exam Extremities: Present: normal Abdomen: Present: normal appearance, soft Uterus: Present: normal, firm - Labs Labs: Abnormal Lab Results - Last 24 Hours (Table) 10/05/23 Range/Units 06:59 WBC 17.4 H (3.8-10.6) k/uL Neutrophils # 12.1 H (1.3-7.7) k/uL Monocytes # 1.1 H (0-1.0) k/uL Assessment and Plan Assessment: 22 year old PPD#1 s/p normal vaginal delivery Plan: 1. . Patient meeting all milestones approrpiately. Continue to monitor. 2. Viable female infant. At bedside, doing well. Dispo: Anticipate discharge home tomorrow.
[2023-10-06 09:23] LABS: Basophils % (A) 1 %; Eosinophils # (A) 0.2 k/uL (0-0.7); Eosinophils % (A) 2 %; HCT 34.5 % (34.0-46.0); HGB 11.3 gm/dL (11.4-16.0); Hypochromasia Slight; Lymphocytes # (A) 3.5 k/uL (1.0-4.8); Lymphocytes % (A) 39 %; MCH 30.9 pg (25.0-35.0); MCHC 32.6 g/dL (31.0-37.0); MCV 94.8 fL (80.0-100.0); Monocytes # (A) 0.6 k/uL (0-1.0); Monocytes % (A) 6 %; Neutrophils # (A) 4.3 k/uL (1.3-7.7); Neutrophils % (A) 48 %; Platelet Count 247 k/uL (150-450); RBC 3.64 m/uL (3.80-5.40); RDW 12.9 % (11.5-15.5); WBC 8.9 k/uL (3.8-10.6)
[2023-10-06 09:36] VITALS: BP 108/74; PULSE 97; RESP 15; TEMP 98.2
--- NOTE | 2023-10-06 10:52 | P.DS ---
Providers Date of admission: 10/04/23 06:17 Expected date of discharge: 10/06/23 Attending physician: Bettina Edgar MD Primary care physician: Stated None Hospital Course: Ms. Platt is a 22 year old now PPD#2 s/p normal vaginal delivery after medical induction of labor for intrauterine growth restriction with elevated umbilical artery dopplers. The delivery was uncomplicated without any lacerations. The patient is doing well this morning and desires discharge home. Unfortunately, do to mental health instability and a history of having her two prior children placed into foster care, child protective services has deemed that this new baby girl will also require placement into foster care until the patient can be more compliant with meeting her standards, appointments, counseling, etc. The patient is understandably tearful about this during our conversation this morning. She had no acute events overnight. She has no complaints this morning. She reports minimal lochia, passing flatus, voiding without difficulty, ambulating, and eating/drinking without nausea or vomiting. doing well at bedside. She denies chest pain, shortness of breathing, fevers, or chills overnight. She denies pain or swelling in the legs. restrictions are reviewed with the patient including pelvic rest for 6 weeks. The patient is encouraged to call the office if she experiences any heavy bleeding, foul-smelling discharge, breast complaints, or any if she has any other concerns. She will follow up in the office with in 6 weeks for exam. She requests a prescription for Motrin and Tylenol sent to her pharmacy. All questions are answered. Assessment: 22 year old now PPD#2 s/p normal vaginal delivery Patient Condition at Discharge: Good Plan - Discharge Summary Discharge Rx Participant: No New Discharge Prescriptions: New Acetaminophen Tab [Tylenol] 650 mg PO Q6H PRN #30 tab PRN Reason: Mild Pain (Scale 1 To 3) Ibuprofen [Motrin] 600 mg PO Q6HR PRN #30 tab PRN Reason: Mild Pain (Scale 1 To 3) No Action Vit No.180/Iron/Folic [ Plus Tablet] 1 tab PO DAILY Discharge Medication List Vit No.180/Iron/Folic [ Plus Tablet] 1 tab PO DAILY 11/29/20 [History] Acetaminophen Tab [Tylenol] 650 mg PO Q6H PRN #30 tab 10/06/23 [Rx] Ibuprofen [Motrin] 600 mg PO Q6HR PRN #30 tab 10/06/23 [Rx] Follow up Appointment(s)/Referral(s): Bettina Edgar MD [STAFF PHYSICIAN] - 6 Weeks Activity/Diet/Wound Care/Special Instructions: [facility] P: [phone] - PIN [phone] Instructions 1. Do not begin any exercise program for 3 weeks. 2. Do not resume sexual relations for 6 weeks or longer if uncomfortable. 3. You may take tub baths or showers at any time. 4. You may use tampons if desired after 6 weeks. 5. Keep any areas repaired with stitches clean and dry. 6. If you are not nursing, wear a good fitting, supportive bra during the day and limit fluid intake for at least 1 week to prevent breast engorgement. 7. Call the office, , within the next week to make appointment for your 6 week checkup if it has not already been made. 8. Report any of the following occurrences to the doctor promptly: a. Heavy, excessive bleeding b. Chills, fever c. Burning or frequency of urination d. Pain or redness and breasts if nursing e. Increasing pain or swelling of vulva (stitches). In addition to the above instructions, the following additional should be followed: 1. No heavy lifting or straining (exercising) until after 6 week checkup. 2. Keep abdominal incision clean and dry: You may wear a dressing if more comfortable. 3. Make office appointment for 2 weeks after delivery date. Discharge Disposition: HOME SELF-CARE
[2023-10-06] MEDS: SENNOSIDES-DOCUSATE SODIUM 1 EACH TAB PO SCH (15:16)
== END 2023-10-06 14:50 | disposition home or self-care (01) | DRG 560 ==
LOC: 4FBP 06:17
PROVIDERS: ADMIT Obstetrics & Gynecology; ATTEND Obstetrics & Gynecology
PROC: 10E0XZZ Delivery of Products of Conception, External Approach (ICD-10-PCS; principal; 2023-10-04)
PROC: 10907ZC Drainage of Amniotic Fluid, Therapeutic from Products of Conception, Via Natural or Artificial Opening (ICD-10-PCS; 2023-10-04)
PROC: 3E033VJ Introduction of Other Hormone into Peripheral Vein, Percutaneous Approach (ICD-10-PCS; 2023-10-04)
PROC: 4A0HXCZ Measurement of Products of Conception, Cardiac Rate, External Approach (ICD-10-PCS; 2023-10-04)
DX: O76 Abnormality in fetal heart rate and rhythm complicating labor and delivery (principal); O36.5930 Maternal care for other known or suspected poor fetal growth, third trimester, not applicable or unspecified; F32.A Depression, unspecified; O77.0 Labor and delivery complicated by meconium in amniotic fluid; O99.344 Other mental disorders complicating childbirth; Z37.0 Single live birth; Z3A.37 37 weeks gestation of pregnancy; Z87.891 Personal history of nicotine dependence
CPT/HCPCS: 80306; 85025; 86850; 86900; 86901

== ENCOUNTER 2024-02-08 09:39 | Emergency (ER) | payer OTHER ==
[2024-02-08] MEDS: KETOROLAC 15 MG/ML 1 ML VIAL IVP STA (09:59)
[2024-02-08] MEDS: METOCLOPRAMIDE 5 MG/ML 2 ML VIAL IVP STA (10:00)
[2024-02-08] MEDS: diphenhydrAMINE 50 MG/ML 1 ML VIAL IVP STA (10:00)
[2024-02-08] MEDS: SODIUM CHLORIDE 0.9% 2,000 ML IV STA (10:01)
[2024-02-08 10:30] VITALS: RESP 18
[2024-02-08 10:33] LABS: Basophils % (A) 0 %; Eosinophils % (A) 0 %; HCT 42.8 % (34.0-46.0); HGB 13.7 gm/dL (11.4-16.0); Lymphocytes # (A) 1.2 k/uL (1.0-4.8); Lymphocytes % (A) 14 %; MCH 29.6 pg (25.0-35.0); MCHC 32.1 g/dL (31.0-37.0); MCV 92.1 fL (80.0-100.0); Mean Platelet Volume 7.8; Monocytes # (A) 0.3 k/uL (0-1.0); Monocytes % (A) 3 %; Neutrophils % (A) 82 %; Platelet Count 268 k/uL (150-450); RBC 4.65 m/uL (3.80-5.40); RDW 13.1 % (11.5-15.5); WBC 8.6 k/uL (3.8-10.6)
[2024-02-08 10:42] LABS: Appearance,Urine Cloudy (Clear); Bilirubin,Urine Negative (Negative); Blood,Urine Negative (Negative); Color,Urine Yellow; Glucose,Urine (UA) Negative (Negative); Ketones,Urine 3+ (Negative); Leukocyte Esterase,Urine Small (Negative); Mucus,Urine Few /hpf; Nitrite,Urine Negative (Negative); Protein,Urine 1+ (Negative); RBC,Urine 1 /hpf (0-5); Specific Gravity,Urine 1.023 (1.001-1.035); Squamous Epithelial Cell,Urine 10 /hpf (0-4); Urobilinogen,Urine <2.0 mg/dL (<2.0); WBC,Urine 4 /hpf (0-5)
[2024-02-08 10:54] LABS: ALT 30 U/L (4-34); AST 33 U/L (14-36); African American GFR (CKD) >90 (>60 ml/min/1.73 sqM); Albumin 3.8 g/dL (3.5-5.0); Alkaline Phosphatase 99 U/L (38-126); Anion Gap 5 mmol/L; Blood Urea Nitrogen 17 mg/dL (7-17); Calcium 9.1 mg/dL (8.4-10.2); Carbon Dioxide 26 mmol/L (22-30); Chloride 110 mmol/L (98-107); Glucose 102 mg/dL (74-99); Lipase 201 U/L (23-300); Non-African American GFR(CKD) >90 (>60 ml/min/1.73 sqM); Potassium 4.4 mmol/L (3.5-5.1); Sodium 141 mmol/L (137-145); Total Bilirubin 0.7 mg/dL (0.2-1.3); Total Protein 6.5 g/dL (6.3-8.2)
[2024-02-08 11:27] VITALS: BP 118/70; PULSE 72; TEMP 98.1
--- NOTE | 2024-03-04 16:05 | ED ---
General Adult HPI - General Chief complaint: Nausea/Vomiting/Diarrhea Stated complaint: ETOH-Vomiting Time Seen by Provider: 02/08/24 09:42 Source: patient, RN notes reviewed Mode of arrival: EMS Limitations: no limitations - History of Present Illness Initial comments: 23 female presents emergency department complaint of nausea vomiting, dehydration. Patient states she drank too much alcohol last night. Patient states she is having hangover. Patient denies any sick contacts has mild diffuse abdominal pain. Denies any chance of . - Related Data Home Medications Medication Instructions Recorded Confirmed Vit No.180/Iron/Folic 1 tab PO DAILY 11/29/20 10/04/23 [ Plus Tablet] Previous Rx's Medication Instructions Recorded Acetaminophen Tab [Tylenol] 650 mg PO Q6H PRN #30 tab 10/06/23 Ibuprofen [Motrin] 600 mg PO Q6HR PRN #30 tab 10/06/23 Allergies Allergy/AdvReac Type Severity Reaction Status Date / Time No Known Allergies Allergy Verified 06/19/22 00:43 Review of Systems ROS Statement: Those systems with pertinent positive or pertinent negative responses have been documented in the HPI. ROS Other: All systems not noted in ROS Statement are negative. Past Medical History Past Medical History: No Reported History Additional Past Medical History / Comment(s): low iron History of Any Multi-Drug Resistant Organisms: None Reported Past Surgical History: No Surgical Hx Reported Past Anesthesia/Blood Transfusion Reactions: No Reported Reaction Past Psychological History: Depression Smoking Status: Former smoker Past Alcohol Use History: None Reported Past Drug Use History: None Reported - Past Family History Mother History Unknown: Yes Additional Family Medical History / Comment(s): pt states adopted does not know hx General Exam Limitations: no limitations General appearance: alert, in no apparent distress, anxious Head exam: Present: atraumatic, normocephalic, normal inspection ENT exam: Present: normal exam, mucous membranes moist Neck exam: Present: normal inspection. Absent: tenderness, meningismus, lymphadenopathy Respiratory exam: Present: normal lung sounds bilaterally. Absent: respiratory distress, wheezes, rales, rhonchi, stridor Cardiovascular Exam: Present: regular rate, normal rhythm, normal heart sounds. Absent: systolic murmur, diastolic murmur, rubs, gallop, clicks GI/Abdominal exam: Present: soft, normal bowel sounds. Absent: distended, tenderness, guarding, rebound, rigid Course Vital Signs 02/08/24 02/08/24 09:39 10:38 Temperature 97.8 F 98.1 F Pulse Rate 63 72 Respiratory 18 18 Rate Blood Pressure 119/73 118/70 O2 Sat by Pulse 100 100 Oximetry Medical Decision Making - Medical Decision Making Was pt. sent in by a medical professional or institution (, [facility], [facility], urgent care, hospital, or halfway...) When possible be specific @ -[No] Did you speak to anyone other than the patient for history (EMS, parent, family, police, friend...)? What history was obtained from this source @ -[No] Did you review nursing and triage notes (agree or disagree)? Why? @ -[I reviewed and agree with nursing and triage notes] Were old charts reviewed (outside hosp., previous admission, EMS record, old EKG, old radiological studies, urgent care reports/EKG's, halfway records)? Report findings @ -[No old charts were reviewed] Differential Diagnosis (chest pain, altered mental status, abdominal pain women, abdominal pain men, vaginal bleeding, weakness, fever, dyspnea, syncope, headache, dizziness, GI bleed, back pain, seizure, CVA, palpatations, mental health, musculoskeletal)? @ -Differential Abdominal Pain Women: Appendicitis, Cholecystitis, diverticulosis, ischemic bowel, pancreatitis, hepatitis, UTI, gastroenteritis, AAA, incarcerated hernia, bowel obstruction, constipation, inflammatory bowel, hepatitis, peptic ulcer disease, splenic infarction, perforated viscus, vulvitis, ovarian torsion, PID, kidney stone, placenta abruption, this is not meant to be an all-inclusive list EKG interpreted by me (3pts min.). @ -None X-rays interpreted by me (1pt min.). @ -[None done] CT interpreted by me (1pt min.). @ -[None done] U/S interpreted by me (1pt. min.). @ -[None done] What testing was considered but not performed or refused? (CT, X-rays, U/S, labs)? Why? @ -[None] What meds were considered but not given or refused? Why? @ -[None] Did you discuss the management of the patient with other professionals (professionals i.e. , [facility], [facility], lab, RT, psych nurse, protective services social worker, marketing project manager, teacher, sba business development officer, employment case manager)? Give summary @ -[No] Was smoking cessation discussed for >3mins.? @ -[No] Was critical care preformed (if so, how long)? @ -[No] Were there social determinants of health that impacted care today? How? (Homelessness, low income, unemployed, alcoholism, drug addiction, tra nsportation, low edu. Level, literacy, decrease access to med. care, [facility], rehab)? @ -[No] Was there de-escalation of care discussed even if they declined (Discuss DNR or withdrawal of care, Hospice)? DNR status @ -[No] What co-morbidities impacted this encounter? (DM, HTN, Smoking, COPD, CAD, Cance r, CVA, ARF, Chemo, Hep., AIDS, mental health diagnosis, sleep apnea, morbid obesity)? @ -[None] Was patient admitted / discharged? Hospital course, mention meds given and route, prescriptions, significant lab abnormalities, going to OR and other pertinent info. @ -[AM A. Patient was seen, laboratory studies were ordered. Patient was given medication which she started having mild reaction to the Reglan felt very anxious and stated that she had to leave. Patient signed out AGAINST MEDICAL ADVICE. Undiagnosed new problem with uncertain prognosis? @ -[No] Drug Therapy requiring intensive monitoring for toxicity (Heparin, Nitro, Insulin, Cardizem)? @ -[No] Were any procedures done? @ -[No] Diagnosis/symptom? @ -Nausea vomiting Acute, or Chronic, or Acute on Chronic? @ -Acute Uncomplicated (without systemic symptoms) or Complicated (systemic symptoms)? @ -Uncomplicated Side effects of treatment? @ -[No] Exacerbation, Progression, or Severe Exacerbation? @ -[No] Poses a threat to life or bodily function? How? (Chest pain, [place], [place], pneumonia, PE, COPD, DKA, ARF, appy, cholecystitis, CVA, Diverticulitis, Homicidal, Suicidal, threat to staff... and all critical care pts) @ -[No] - Lab Data Result diagrams: 02/08/24 10:05 02/08/24 10:05 Lab Results 02/08/24 02/08/24 02/08/24 Range/Units 10:05 10:05 10:23 WBC 8.6 (3.8-10.6) k/uL RBC 4.65 (3.80-5.40) m/uL Hgb 13.7 (11.4-16.0) gm/dL Hct 42.8 (34.0-46.0) % MCV 92.1 (80.0-100.0) fL MCH 29.6 (25.0-35.0) pg MCHC 32.1 (31.0-37.0) g/dL RDW 13.1 (11.5-15.5) % Plt Count 268 (150-450) k/uL MPV 7.8 Neutrophils % 82 % Lymphocytes % 14 % Monocytes % 3 % Eosinophils % 0 % Basophils % 0 % Neutrophils # 7.0 (1.3-7.7) k/uL Lymphocytes # 1.2 (1.0-4.8) k/uL Monocytes # 0.3 (0-1.0) k/uL Eosinophils # 0.0 (0-0.7) k/uL Basophils # 0.0 (0-0.2) k/uL Sodium 141 (137-145) mmol/L Potassium 4.4 (3.5-5.1) mmol/L Chloride 110 H (98-107) mmol/L Carbon Dioxide 26 (22-30) mmol/L Anion Gap 5 mmol/L BUN 17 (7-17) mg/dL Creatinine 0.53 (0.52-1.04) mg/dL Est GFR (CKD-EPI)AfAm >90 (>60 ml/min/1.73 sqM) Est GFR (CKD-EPI)NonAf >90 (>60 ml/min/1.73 sqM) Glucose 102 H (74-99) mg/dL Calcium 9.1 (8.4-10.2) mg/dL Total Bilirubin 0.7 (0.2-1.3) mg/dL AST 33 (14-36) U/L ALT 30 (4-34) U/L Alkaline Phosphatase 99 (38-126) U/L Total Protein 6.5 (6.3-8.2) g/dL Albumin 3.8 (3.5-5.0) g/dL Lipase 201 (23-300) U/L Urine Color Yellow Urine Appearance Cloudy H (Clear) Urine pH 7.0 (5.0-8.0) Ur Specific [place] 1.023 (1.001-1.035) Urine Protein 1+ H (Negative) Urine Glucose (UA) Negative (Negative) Urine Ketones 3+ H (Negative) Urine Blood Negative (Negative) Urine Nitrite Negative (Negative) Urine Bilirubin Negative (Negative) Urine Urobilinogen <2.0 (<2.0) mg/dL Ur Leukocyte Esterase Small H (Negative) Urine RBC 1 (0-5) /hpf Urine WBC 4 (0-5) /hpf Ur Squamous Epith Cells 10 H (0-4) /hpf Urine Mucus Few H (None) /hpf Urine HCG, Qual (Not Detectd) 02/08/24 Range/Units 10:23 WBC (3.8-10.6) k/uL RBC (3.80-5.40) m/uL Hgb (11.4-16.0) gm/dL Hct (34.0-46.0) % MCV (80.0-100.0) fL MCH (25.0-35.0) pg MCHC (31.0-37.0) g/dL RDW (11.5-15.5) % Plt Count (150-450) k/uL MPV Neutrophils % % Lymphocytes % % Monocytes % % Eosinophils % % Basophils % % Neutrophils # (1.3-7.7) k/uL Lymphocytes # (1.0-4.8) k/uL Monocytes # (0-1.0) k/uL Eosinophils # (0-0.7) k/uL Basophils # (0-0.2) k/uL Sodium (137-145) mmol/L Potassium (3.5-5.1) mmol/L Chloride (98-107) mmol/L Carbon Dioxide (22-30) mmol/L Anion Gap mmol/L BUN (7-17) mg/dL Creatinine (0.52-1.04) mg/dL Est GFR (CKD-EPI)AfAm (>60 ml/min/1.73 sqM) Est GFR (CKD-EPI)NonAf (>60 ml/min/1.73 sqM) Glucose (74-99) mg/dL Calcium (8.4-10.2) mg/dL Total Bilirubin (0.2-1.3) mg/dL AST (14-36) U/L ALT (4-34) U/L Alkaline Phosphatase (38-126) U/L Total Protein (6.3-8.2) g/dL Albumin (3.5-5.0) g/dL Lipase (23-300) U/L Urine Color Urine Appearance (Clear) Urine pH (5.0-8.0) Ur Specific [place] (1.001-1.035) Urine Protein (Negative) Urine Glucose (UA) (Negative) Urine Ketones (Negative) Urine Blood (Negative) Urine Nitrite (Negative) Urine Bilirubin (Negative) Urine Urobilinogen (<2.0) mg/dL Ur Leukocyte Esterase (Negative) Urine RBC (0-5) /hpf Urine WBC (0-5) /hpf Ur Squamous Epith Cells (0-4) /hpf Urine Mucus (None) /hpf Urine HCG, Qual Not Detected (Not Detectd) Disposition Clinical Impression: Nausea & vomiting Disposition: LEFT AGAINST MEDICAL ADVICE Referrals: None,Stated [Primary Care Provider] - 1-2 days
== END 2024-02-08 10:41 | disposition left against medical advice (07) ==
LOC: EC 09:39
DX: R11.2 Nausea with vomiting, unspecified (principal); Z53.29 Procedure and treatment not carried out because of patient's decision for other reasons; Z87.891 Personal history of nicotine dependence
CPT/HCPCS: 36415; 80053; 83690; 85025; 81001; 81025; 99284; 96374; 96375 ×2; 96361; J1200; J2765; J1885

== ENCOUNTER 2024-04-30 14:01 | Emergency (ER) | payer OTHER ==
--- NOTE | 2024-05-27 14:32 | US ---
Site ID [facility] Patient Swathi Platt ID 2000 Age/Gender: 23Y, O Order # N/A Procedure US OB <= 14 wk fetus Date 04/30/2024 4:27:00 PM EXAMINATION TYPE: Transabdominal DATE OF EXAM: 05/18/2024 7:49 PM COMPARISON: NONE CLINICAL INDICATION: 23 year old with history of left lower quadrant pain; EXAM PERFORMED: Transvaginal (TV) EXAM MEASUREMENTS: GESTATIONAL AGE / DATING Uterus measures 7.0 x 3.9 x 5.1 cm. Endometrium is thickened measuring up to 11 mm. No visualized IUP at this time. Left ovary measures 4.9 x 4.3 x 5.4 cm. Left ovarian cystic lesion measuring 4.1 x 3.8 x 4.8 cm with lacelike reticular echoes and thin wall. No internal color flow. The left ovary demons trates normal arterial and venous vascular flow. Right ovary is not visualized. No free fluid. IMPRESSION: 1. No evidence of intrauterine gestational sac, correlate with B-hCG. If positive, this could represe nt early , ectopic or spontaneous . Follow up pelvic ultrasound in 5-7 day s and serial beta hCG studies are recommended. 2. Left ovarian hemorrhagic cyst.
== END 2024-04-30 17:30 | disposition home or self-care (01) ==
LOC: EC 14:01
DX: N83.202 Unspecified ovarian cyst, left side (principal)
CPT/HCPCS: 76801; 80053; 81003; 84702; 85025; 99284

== ENCOUNTER 2024-11-17 09:40 | Emergency (ER) | payer OTHER ==
[2024-11-17 10:05] VITALS: RESP 20; TEMP 97.9
--- NOTE | 2024-11-17 10:30 | ED ---
Back Pain HPI - General Chief Complaint: Back Pain/Injury Stated Complaint: back pain Time Seen by Provider: 11/17/24 09:58 Source: patient, RN notes reviewed Mode of arrival: ambulatory Limitations: no limitations - History of Present Illness Initial Comments: This is a 24-year-old female presenting with low back pain (5/10) x 3 days. Endorses intermittent left leg radiculopathy, with aching pain radiating to calf. Patient states pain has been persistent since receiving her epidural in January 2022, worsening yesterday. Patient states pain worsens when standing and carrying heavy objects and improves with heat and Motrin. Denies saddle paresthesia or urinary incontinence/retention. MD Complaint: back pain Onset/Timin -: days(s) Similar Symptoms Previously: Yes Radiation: left leg Severity scale (1-10): 5 Quality: aching Consistency: constant Improves With: immobilization, supine Worsens With: movement, sitting upright, walking Context: other (Epidural 2021) Associated Symptoms: denies other symptoms Treatments Prior to Arrival: heat therapy, NSAIDS - Related Data Home Medications Medication Instructions Recorded Confirmed Vit No.180/Iron/Folic 1 tab PO DAILY 11/29/20 10/04/23 [ Plus Tablet] Previous Rx's Medication Instructions Recorded Acetaminophen Tab [Tylenol] 650 mg PO Q6H PRN #30 tab 10/06/23 Ibuprofen [Motrin] 600 mg PO Q6HR PRN #30 tab 10/06/23 Cyclobenzaprine [Flexeril] 10 mg PO Q8H PRN #15 tab 11/17/24 Ibuprofen 400 mg PO Q8H PRN #30 tablet 11/17/24 Lidocaine 4% Patch 1 patch TOPICAL Q24H PRN #10 patch 11/17/24 Allergies Allergy/AdvReac Type Severity Reaction Status Date / Time No Known Allergies Allergy Verified 06/19/22 00:43 Review of Systems ROS Statement: Those systems with pertinent positive or pertinent negative responses have been documented in the HPI. ROS Other: All systems not noted in ROS Statement are negative. Past Medical History Past Medical History: No Reported History Additional Past Medical History / Comment(s): low iron anemia History of Any Multi-Drug Resistant Organisms: None Reported Past Surgical History: No Surgical Hx Reported Past Anesthesia/Blood Transfusion Reactions: No Reported Reaction Past Psychological History: Depression Smoking Status: Former smoker Past Alcohol Use History: None Reported Past Drug Use History: None Reported - Past Family History Mother History Unknown: Yes Additional Family Medical History / Comment(s): pt states adopted does not know hx General Exam Limitations: no limitations General appearance: alert, in no apparent distress Head exam: Present: atraumatic, normocephalic, normal inspection Eye exam: Present: normal appearance, PERRL, EOMI. Absent: scleral icterus, conjunctival injection, periorbital swelling ENT exam: Present: normal exam, mucous membranes moist Neck exam: Present: normal inspection. Absent: tenderness, meningismus, lymphadenopathy Respiratory exam: Present: normal lung sounds bilaterally. Absent: respiratory distress, wheezes, rales, rhonchi, stridor Cardiovascular Exam: Present: regular rate, normal rhythm, normal heart sounds. Absent: systolic murmur, diastolic murmur, rubs, gallop, clicks GI/Abdominal exam: Present: soft, normal bowel sounds. Absent: distended, tenderness, guarding, rebound, rigid Extremities exam: Present: normal inspection, full ROM, normal capillary refill. Absent: tenderness, pedal edema, joint swelling, calf tenderness Back exam: Present: muscle spasm, paraspinal tenderness (Positive left paralumbar muscle spasm and tenderness) Neurological exam: Present: alert, oriented X3, CN II-XII intact Psychiatric exam: Present: normal affect, normal mood Skin exam: Present: warm, dry, intact, normal color. Absent: rash Course Vital Signs 11/17/24 11/17/24 10:02 12:11 Temperature 97.9 F 97.9 F Pulse Rate 92 72 Respiratory 20 20 Rate Blood Pressure 116/77 112/74 O2 Sat by Pulse 98 99 Oximetry Medical Decision Making - Medical Decision Making Was pt. sent in by a medical professional or institution (, PA, MEDIA SALES EXECUTIVE, urgent care, hospital, or longterm...) When possible be specific @ -No Did you speak to anyone other than the patient for history (EMS, parent, family, police, friend...)? What history was obtained from this source @ -No Did you review nursing and triage notes (agree or disagree)? Why? @ -I reviewed and agree with nursing and triage notes Were old charts reviewed (outside hosp., previous admission, EMS record, old EKG, old radiological studies, urgent care reports/EKG's, longterm records)? Report findings @ -No old charts were reviewed Differential Diagnosis (chest pain, altered mental status, abdominal pain women, abdominal pain men, vaginal bleeding, weakness, fever, dyspnea, syncope, headache, dizziness, GI bleed, back pain, seizure, CVA, palpatations, mental health, musculoskeletal)? @ -Differential Back Pain: Strain, zoster, cauda equina syndrome, epidural abscess, vertebral osteomyelitis, discitis, fracture, subluxation, disc herniation, DJD, spinal stenosis, dissection, AAA, pancreatitis, peptic ulcer disease, pyelonephritis, kidney stone, this is not meant to be an all-inclusive list. EKG interpreted by me (3pts min.). @ -Not done X-rays interpreted by me (1pt min.). @ -None done CT interpreted by me (1pt min.). @ -None done U/S interpreted by me (1pt. min.). @ -None done What testing was considered but not performed or refused? (CT, X-rays, U/S, labs)? Why? @ -Considered lumbar x-ray but with known history of low back pain and no recent trauma, ultimately not performed. What meds were considered but not given or refused? Why? @ -Patient declined all IM medications offered including Toradol and Norflex Did you discuss the management of the patient with other professionals (professionals i.e. , PA, MEDIA SALES EXECUTIVE, lab, RT, psych nurse, social work assistant, estate planning director, teacher, property utilization officer, case making machine operator)? Give summary @ -No Was smoking cessation discussed for >3mins.? @ -No Was critical care preformed (if so, how long)? @ -No Were there social determinants of health that impacted care today? How? (Homelessness, low income, unemployed, alcoholism, drug addiction, transportation, low edu. Level, literacy, decrease access to med. care, intermediate, rehab)? @ -No Was there de-escalation of care discussed even if they declined (Discuss DNR or withdrawal of care, Hospice)? DNR status @ -No What co-morbidities impacted this encounter? (DM, HTN, Smoking, COPD, CAD, Cancer, CVA, ARF, Chemo, Hep., AIDS, mental health diagnosis, sleep apnea, morbid obesity)? @ -None Was patient admitted / discharged? Hospital course, mention meds given and route, prescriptions, significant lab abnormalities, going to OR and other pertinent info. @ -Patient initially provided IM Toradol, Norflex and lidocaine patch. Patient declined all IM medications, requesting p.o. instead. P.o. Motrin and Flexeril given with significant relief noted by patient. Motrin 400, Flexeril and lidocaine patches sent to patient's pharmacy. Advised follow-up with PCP/orthopedics for ongoing management of low back pain. Discussed patient with Dr. Morrell. Undiagnosed new problem with uncertain prognosis? @ -No Drug Therapy requiring intensive monitoring for toxicity (Heparin, Nitro, Insulin, Cardizem)? @ -No Were any procedures done? @ -No Diagnosis/symptom? @ -Low back strain, sciatica Acute, or Chronic, or Acute on Chronic? @ -Acute Uncomplicated (without systemic symptoms) or Complicated (systemic symptoms)? @ -Uncomplicated Side effects of treatment? @ -No Exacerbation, Progression, or Severe Exacerbation? @ -No Poses a threat to life or bodily function? How? (Chest pain, [place], [place], pneumonia, PE, COPD, DKA, ARF, appy, cholecystitis, CVA, Diverticulitis, Homicidal, Suicidal, threat to staff... and all critical care pts) @ -No Disposition Clinical Impression: Lumbar paraspinal muscle spasm, Sciatica of left side Disposition: HOME SELF-CARE Condition: Good Instructions (If sedation given, give patient instructions): Acute Low Back Pain (ED) Additional Instructions: Warm compresses for 10 minutes up to 4 times daily. Gentle massage of area. Prescriptions: Cyclobenzaprine [Flexeril] 10 mg PO Q8H PRN #15 tab PRN Reason: Spasms Ibuprofen 400 mg PO Q8H PRN #30 tablet PRN Reason: Pain Lidocaine 4% Patch 1 patch TOPICAL Q24H PRN #10 patch PRN Reason: Pain Is patient prescribed a controlled substance at d/c from ED?: No Referrals: None,Stated [Primary Care Provider] - 1-2 days Jesse Szymanski DO [Doctor of Osteopathic Medicine] - 1-2 days Time of Disposition: 11:50
[2024-11-17] MEDS: KETOROLAC 15 MG/ML 1 ML VIAL IVP STA (10:57)
[2024-11-17] MEDS: ORPHENADRINE 30 MG/ML 2 ML VIAL IM STA (11:01)
[2024-11-17] MEDS: KETOROLAC 15 MG/ML 1 ML VIAL IM STA (11:01)
[2024-11-17] MEDS: LIDOCAINE 4% PATCH TOPICAL ONE (11:05)
[2024-11-17] MEDS: CYCLOBENZAPRINE 10 MG TAB PO STA (11:05)
[2024-11-17] MEDS: IBUPROFEN 400 MG TAB PO STA (11:05)
[2024-11-17 12:12] VITALS: BP 112/74; PULSE 72
== END 2024-11-17 12:12 | disposition home or self-care (01) ==
LOC: EC 09:40
DX: M54.42 Lumbago with sciatica, left side (principal); M62.830 Muscle spasm of back; Z87.891 Personal history of nicotine dependence
CPT/HCPCS: 99283

== ENCOUNTER 2024-12-19 12:40 | Emergency (ER) | payer OTHER ==
--- NOTE | 2024-12-19 12:50 | ED ---
Chest Pain HPI - General Source: patient, RN notes reviewed Mode of arrival: ambulatory Limitations: no limitations <Rajwinder Lind - Last Filed: 12/19/24 12:50> - General Source: patient, RN notes reviewed <Zakia Lema - Last Filed: 12/19/24 17:49> - General Stated Complaint: chest pain, headache Time Seen by Provider: 12/19/24 12:50 - History of Present Illness Initial Comments: Quick note: 24-year-old female presented the ER for evaluation of chest pain. She states this started today she also was endorsing dizziness, lightheadedness and shortness of breath. No cardiac history. Patient also reports a headache for the past 2 weeks. (Rajwinder Lind) 24-year-old female presenting to the ER for headache x 2 weeks. States headache began 2 weeks ago and is described as a constant tension, bandlike headache that is temporary relieved with ibuprofen or Tylenol. Denies head injury prior to symptom onset. Patient does not have a history of headaches. Denies vision changes, nausea, vomiting. She does endorse spells of lightheadedness over the course of the week however denies syncope. States today when she woke up she began to feel chest tightness in the center of her chest that has been constant. Denies radiation of pain. Denies alleviating or exacerbating symptoms. She has never had this before. No cardiac conditions or other health conditions. (Zakia Lema) - Related Data Home Medications Medication Instructions Recorded Confirmed Vit No.180/Iron/Folic 1 tab PO DAILY 11/29/20 10/04/23 [ Plus Tablet] Previous Rx's Medication Instructions Recorded Acetaminophen Tab [Tylenol] 650 mg PO Q6H PRN #30 tab 10/06/23 Ibuprofen [Motrin] 600 mg PO Q6HR PRN #30 tab 10/06/23 Cyclobenzaprine [Flexeril] 10 mg PO Q8H PRN #15 tab 11/17/24 Ibuprofen 400 mg PO Q8H PRN #30 tablet 11/17/24 Lidocaine 4% Patch 1 patch TOPICAL Q24H PRN #10 patch 11/17/24 Allergies Allergy/AdvReac Type Severity Reaction Status Date / Time No Known Allergies Allergy Verified 12/19/24 13:25 Review of Systems ROS Other: All systems not noted in ROS Statement are negative. <Rajwinder Lind - Last Filed: 12/19/24 12:50> ROS Other: All systems not noted in ROS Statement are negative. <Zakia Lema - Last Filed: 12/19/24 17:49> ROS Statement: Those systems with pertinent positive or pertinent negative responses have been documented in the HPI. EKG Findings - EKG Results: EKG: interpreted by ERMD (EKG reveals normal sinus rhythm with no ST changes. Ventricular rate 68 bpm, SD interval 88, QRS duration 72, QT/QTc 381/397) <Zakia Lema - Last Filed: 12/19/24 17:49> Past Medical History Past Medical History: No Reported History Additional Past Medical History / Comment(s): low iron anemia History of Any Multi-Drug Resistant Organisms: None Reported Past Surgical History: No Surgical Hx Reported Past Anesthesia/Blood Transfusion Reactions: No Reported Reaction Past Psychological History: Depression Smoking Status: Former smoker Past Alcohol Use History: None Reported Past Drug Use History: None Reported - Past Family History Mother History Unknown: Yes Additional Family Medical History / Comment(s): pt states adopted does not know hx <Rajwinder Lind - Last Filed: 12/19/24 12:50> General Exam <Rajwinder Lind - Last Filed: 12/19/24 12:50> - General Exam Comments Initial Comments: Visual Physical Exam Vital signs reviewed General: Well-appearing, nontoxic, no acute distress. Head: Normocephalic, atraumatic Eyes: PERRLA, EOMI ENT: Airway patent Chest: Nonlabored breathing Skin: No visual rash, normal skin tone Neuro: Alert and oriented 3 Musculoskeletal: No gross abnormalities (Rajwinder Lind) Course Vital Signs 12/19/24 13:18 Temperature 98.0 F Pulse Rate 66 Respiratory 17 Rate Blood Pressure 103/68 O2 Sat by Pulse 100 Oximetry Chest Pain MDM <Rajwinder Lind - Last Filed: 12/19/24 12:50> <Zakia Lema - Last Filed: 12/19/24 17:49> - MDM I performed the quick note portion of this chart. Electronically signed by Rajwinder Lind PA-C (Rajwinder Lind) Was pt. sent in by a medical professional or institution (DAVE Kee, CLAY PROCESSING FACTORY WORKER, urgent care, hospital, or prison...) When possible be specific @ -No Did you speak to anyone other than the patient for history (EMS, parent, family, police, friend...)? What history was obtained from this source @ -No Did you review nursing and triage notes (agree or disagree)? Why? @ -I reviewed and agree with nursing and triage notes Were old charts reviewed (outside hosp., previous admission, EMS record, old EKG, old radiological studies, urgent care reports/EKG's, prison records)? Report findings @ -No old charts were reviewed Differential Diagnosis (chest pain, altered mental status, abdominal pain women, abdominal pain men, vaginal bleeding, weakness, fever, dyspnea, syncope, headache, dizziness, GI bleed, back pain, seizure, CVA, palpatations, mental health, musculoskeletal)? @ -Differential Headache: Migraine, tension, cluster, carbon monoxide, central venous thrombosis, pension karma temporal arteritis, acute closure glaucoma, intercranial hemorrhage, mastoiditis, sinusitis, head injury, this is not meant to be an all-inclusive list. EKG interpreted by me (3pts min.). @ -As above X-rays interpreted by me (1pt min.). @ -Chest x-ray reveals no acute process CT interpreted by me (1pt min.). @ -CT brain reveals no intracranial process U/S interpreted by me (1pt. min.). @ -None done What testing was considered but not performed or refused? (CT, X-rays, U/S, labs)? Why? @ -None What meds were considered but not given or refused? Why? @ -Patient declines IV as she states she is scared of needles Did you discuss the management of the patient with other professionals (luigi gaines i.e. DAVE Kee, CLAY PROCESSING FACTORY WORKER, lab, RT, psych nurse, vp digital marketing social media and crm, photographic enlarger operator, teacher, public health service officer, bilingual case manager)? Give summary @ -No Was smoking cessation discussed for >3mins.? @ -No Was critical care preformed (if so, how long)? @ -No Were there social determinants of health that impacted care today? How? (Homelessness, low income, unemployed, alcoholism, drug addiction, transportation, low edu. Level, literacy, decrease access to med. care, long-term, rehab)? @ -No Was there de-escalation of care discussed even if they declined (Discuss DNR or withdrawal of care, Hospice)? DNR status @ -No What co-morbidities impacted this encounter? (DM, HTN, Smoking, COPD, CAD, Cancer, CVA, ARF, Chemo, Hep., AIDS, mental health diagnosis, sleep apnea, morbid obesity)? @ -None Was patient admitted / discharged? Hospital course, mention meds given and route, prescriptions, significant lab abnormalities, going to OR and other pertinent info. @ -Discharge. 24-year-old female presenting for headache x 2 weeks with associated chest pain and shortness of breath that started today. No previous cardiac conditions. Patient is afebrile, nontachycardic, satting 100% on room air. Neurological examination is unremarkable. EKG reveals normal sinus rhythm with no ST changes. Patient is provided with dose of Tylenol and Reglan for supportive care. Lab work including CBC, CMP, coags, troponin unremarkable. Ch est x-ray reveals no acute process. CT brain reveals no acute intracranial process. Urinalysis reveals 1+ ketones, urine negative. Results discussed with patient. I do not identify any emergent etiology causing symptoms today. Patient can be safely discharged home with close PCP follow-up and return precautions. Case was discussed with my ED attending Dr. Lutz. Undiagnosed new problem with uncertain prognosis? @ -No Drug Therapy requiring intensive monitoring for toxicity (Heparin, Nitro, Insulin, Cardizem)? @ -No Were any procedures done? @ -No Diagnosis/symptom? @ -Headache Acute, or Chronic, or Acute on Chronic? @ -Acute Uncomplicated (without systemic symptoms) or Complicated (systemic symptoms)? @ -Uncomplicated Side effects of treatment? @ -No Exacerbation, Progression, or Severe Exacerbation? @ -No Poses a threat to life or bodily function? How? (Chest pain, [place], [place], pneumonia, PE, COPD, DKA, ARF, appy, cholecystitis, CVA, Diverticulitis, Homicidal, Suicidal, threat to staff... and all critical care pts) @ -Not at this time (Zakia Leam) Disposition <Rajwinder Lind - Last Filed: 12/19/24 12:50> Is patient prescribed a controlled substance at d/c from ED?: No Time of Disposition: 17:46 <Zakia Lema - Last Filed: 12/19/24 17:49> Clinical Impression: Headache Disposition: HOME SELF-CARE Condition: Stable Instructions (If sedation given, give patient instructions): Tension Headache (ED) Additional Instructions: Please return to the Emergency Department if symptoms worsen or any other concerns. Follow-up with your PCP within the week for reevaluation. Referrals: None,Stated [Primary Care Provider] - 1-2 days Forms: Area PCPs
[2024-12-19 14:10] LABS: Basophils % (A) 1 %; Eosinophils # (A) 0.2 k/uL (0-0.7); Eosinophils % (A) 3 %; HCT 40.3 % (34.0-46.0); HGB 13.2 gm/dL (11.4-16.0); Hypochromasia Slight; Lymphocytes # (A) 1.4 k/uL (1.0-4.8); Lymphocytes % (A) 22 %; MCH 29.6 pg (25.0-35.0); MCHC 32.8 g/dL (31.0-37.0); MCV 90.2 fL (80.0-100.0); Mean Platelet Volume 7.6; Monocytes # (A) 0.3 k/uL (0-1.0); Monocytes % (A) 5 %; Neutrophils # (A) 4.3 k/uL (1.3-7.7); Neutrophils % (A) 68 %; Platelet Count 280 k/uL (150-450); RBC 4.47 m/uL (3.80-5.40); RDW 13.1 % (11.5-15.5); WBC 6.4 k/uL (3.8-10.6)
--- NOTE | 2024-12-19 14:22 | XR ---
EXAMINATION TYPE: XR chest 2V DATE OF EXAM: 12/19/2024 2:16 PM COMPARISON: None TECHNIQUE: XR chest 2V Frontal and lateral views of the chest. CLINICAL INDICATION:Female, 24 years old with history of Chest Pain; FINDINGS: Lungs/Pleura: There is no evidence of pleural effusion, focal consolidation, or pneumothorax. Pulmonary vascularity: Unremarkable. Heart/mediastinum: Cardiomediastinal silhouette is unremarkable. Musculoskeletal: No acute osseous pathology. IMPRESSION: No acute cardiopulmonary disease/process. [facility], , 12/19/2024 2:19 PM
[2024-12-19 14:23] LABS: ALT 30 U/L (4-34); AST 38 U/L (14-36); African American GFR (CKD) >90 (>60 ml/min/1.73 sqM); Alkaline Phosphatase 118 U/L (38-126); Anion Gap 7 mmol/L; Blood Urea Nitrogen 20 mg/dL (7-17); Calcium 9.4 mg/dL (8.4-10.2); Carbon Dioxide 25 mmol/L (22-30); Chloride 103 mmol/L (98-107); Glucose 81 mg/dL (74-99); Magnesium 2.2 mg/dL (1.6-2.3); Non-African American GFR(CKD) >90 (>60 ml/min/1.73 sqM); Potassium 4.8 mmol/L (3.5-5.1); Sodium 135 mmol/L (137-145); Total Bilirubin 1.1 mg/dL (0.2-1.3); Total Protein 7.2 g/dL (6.3-8.2)
[2024-12-19 14:27] LABS: INR 0.9 (<1.2); Partial Thromboplastin Time 22.9 sec (22.0-30.0); Prothrombin Time 10.4 sec (10.0-12.5)
[2024-12-19 14:46] LABS: Influenza A Not Detected (Not Detectd); Influenza B Not Detected (Not Detectd); RSV Not Detected (Not Detectd)
[2024-12-19] MEDS: ACETAMINOPHEN TAB 500 MG TAB PO STA (16:31)
[2024-12-19] MEDS: METOCLOPRAMIDE 10 MG TAB PO STA (16:31)
[2024-12-19 16:41] LABS: Appearance,Urine Clear (Clear); Bilirubin,Urine Negative (Negative); Blood,Urine Negative (Negative); Color,Urine Light Yellow; Glucose,Urine (UA) Negative (Negative); Ketones,Urine 1+ (Negative); Leukocyte Esterase,Urine Negative (Negative); Nitrite,Urine Negative (Negative); PH, Urine 6.5 (5.0-8.0); Protein,Urine Negative (Negative)
--- NOTE | 2024-12-19 17:15 | CT ---
EXAMINATION TYPE: CT brain wo con DATE OF EXAM: 12/19/2024 4:55 PM COMPARISON: None. CLINICAL INDICATION: Female, 24 years old with history of Headache x 2 weeks, Headache x2 weeks. TECHNIQUE: Brain: Axial CT images of the brain were obtained with coronal and sagittal reformats created and rev iewed. Contrast used: None. Oral contrast used: None. CT DLP: 1031.4 mGycm, Automated exposure control for dose reduction was used. FINDINGS: Brain: Extra-axial spaces: No abnormal extra-axial fluid collections. Ventricular system: Within normal limits Cerebral parenchyma: No acute intraparenchymal hemorrhage or mass effect. The kay-white junction is well differentiated. Cerebellum: Unremarkable. Mass effect: No evidence of midline shift. Intracranial vasculature: unremarkable Soft tissues: Normal. Calvarium/osseous structures: No depressed skull fracture. Paranasal sinuses and mastoid air cells: Mild scattered paranasal sinus disease. Visualized orbits: Orbital contents are intact. IMPRESSION: No acute intracranial process. [facility], , 12/19/2024 5:13 PM
[2024-12-19 18:04] VITALS: BP 100/69; PULSE 91; RESP 20; TEMP 98.3
== END 2024-12-19 18:05 | disposition home or self-care (01) ==
LOC: EC 12:40
DX: R51.9 Headache, unspecified (principal); Z87.891 Personal history of nicotine dependence
CPT/HCPCS: 36415; 70450; 71046; 80053; 81003; 81025; 83735; 84484; 85025; 85610; 85730; 87636; 93005; 99285

== ENCOUNTER 2024-12-30 14:23 | Emergency (ER) | payer OTHER ==
[2024-12-30 14:33] VITALS: RESP 16
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
[2024-12-30] MEDS: LIDOCAINE 4% PATCH TOPICAL ONE (15:00)
[2024-12-30] MEDS: IBUPROFEN 600 MG TAB PO STA (15:03)
[2024-12-30] MEDS: KETOROLAC 15 MG/ML 1 ML VIAL IM STA (15:06)
--- NOTE | 2024-12-30 15:45 | XR ---
EXAMINATION TYPE: XR ribs LT w pa chest xray DATE OF EXAM: 12/30/2024 3:36 PM COMPARISON: Chest x-ray December 19, 2024 CLINICAL INDICATION: Female, 24 years old with history of left rib injury; PHH, pain TECHNIQUE: XR ribs LT w pa chest xray; Frontal and oblique views of the ribs with frontal chest radio graph. FINDINGS: The ribs have a normal appearance. No evidence of acute displaced fracture. Overall, the lungs remain clear. The cardiac silhouette is normal in size. The remaining osseous st ructures are intact. IMPRESSION: No acute displaced left-sided rib fracture. No acute cardiopulmonary process. [facility], , 12/30/2024 3:43 PM
[2024-12-30 16:27] VITALS: BP 104/66; PULSE 68; TEMP 97.7
== END 2024-12-30 16:27 | disposition home or self-care (01) ==
LOC: EC 14:23
DX: S20.212A Contusion of left front wall of thorax, initial encounter (principal); Z87.891 Personal history of nicotine dependence; W50.0XXA Accidental hit or strike by another person, initial encounter
CPT/HCPCS: 99283

== ENCOUNTER 2025-01-02 10:53 | Emergency (ER) | payer OTHER ==
[2025-01-02 11:03] VITALS: TEMP 98.4
[2025-01-02 12:02] LABS: Appearance,Urine Cloudy (Clear); Bacteria,Urine Rare /hpf; Bilirubin,Urine Negative (Negative); Blood,Urine Trace (Negative); Color,Urine Light Yellow; Glucose,Urine (UA) Negative (Negative); Ketones,Urine Negative (Negative); Leukocyte Esterase,Urine Moderate (Negative); Mucus,Urine Occasional /hpf; Nitrite,Urine Negative (Negative); PH, Urine 7.5 (5.0-8.0); Protein,Urine Negative (Negative); RBC,Urine 15 /hpf (0-5); Specific Gravity,Urine 1.013 (1.001-1.035); Squamous Epithelial Cell,Urine 17 /hpf (0-4); Urobilinogen,Urine <2.0 mg/dL (<2.0)
--- NOTE | 2025-01-02 12:28 | ED ---
Female Urogenital HPI - General Source: patient, RN notes reviewed Mode of arrival: ambulatory Limitations: no limitations <Rajwinder Lind - Last Filed: 01/04/25 08:36> <Mara Varghese - Last Filed: 01/06/25 10:20> - General Chief complaint: Urogenital Stated complaint: Urogenital Time Seen by Provider: 01/02/25 11:15 - History of Present Illness Initial comments: 24-year-old female presented the ER for evaluation of pelvic discomfort. Patient states about a week ago she was shaving her genital region and believes she may have cut herself with the razor. She states since then she has been having irritation to her pelvic region. She states it feels like a "rash". She states it is mildly uncomfortable and has not noticed bleeding from the region, not vaginal bleeding. She does report mild dysuria. No hematuria, back/flank pain or abdominal pain. Patient also is reporting a clear vaginal discharge. P atient denies . Unsure of STD exposure. Patient denies any nausea, vomiting, constipation/diarrhea, fevers, chills, or other complaints. (Rajwinder Lind) - Related Data Home Medications Medication Instructions Recorded Confirmed Vit No.180/Iron/Folic 1 tab PO DAILY 11/29/20 10/04/23 [ Plus Tablet] Previous Rx's Medication Instructions Recorded Acetaminophen Tab [Tylenol] 650 mg PO Q6H PRN #30 tab 10/06/23 Ibuprofen [Motrin] 600 mg PO Q6HR PRN #30 tab 10/06/23 Cyclobenzaprine [Flexeril] 10 mg PO Q8H PRN #15 tab 11/17/24 Ibuprofen 400 mg PO Q8H PRN #30 tablet 11/17/24 Lidocaine 4% Patch 1 patch TOPICAL Q24H PRN #10 patch 11/17/24 Ibuprofen [Motrin] 600 mg PO Q8HR PRN #30 tab 12/30/24 Lidocaine 4% Patch 1 patch TOPICAL DAILY PRN 7 Days 12/30/24 #7 patch Acyclovir 400 mg PO TID 7 Days #42 capsule 01/02/25 Doxycycline [Vibramycin] 100 mg PO BID #14 capsule 01/02/25 metroNIDAZOLE [Flagyl] 500 mg PO BID #14 tab 01/02/25 Allergies Allergy/AdvReac Type Severity Reaction Status Date / Time No Known Allergies Allergy Verified 01/02/25 11:03 Review of Systems ROS Other: All systems not noted in ROS Statement are negative. <Rajwinder Lind - Last Filed: 01/04/25 08:36> ROS Other: All systems not noted in ROS Statement are negative. <Mara Varghese - Last Filed: 01/06/25 10:20> ROS Statement: Those systems with pertinent positive or pertinent negative responses have been documented in the HPI. Past Medical History Past Medical History: No Reported History Additional Past Medical History / Comment(s): low iron anemia History of Any Multi-Drug Resistant Organisms: None Reported Past Surgical History: No Surgical Hx Reported Past Anesthesia/Blood Transfusion Reactions: No Reported Reaction Past Psychological History: Depression Smoking Status: Former smoker, Vaper Past Alcohol Use History: Occasional Past Drug Use History: Marijuana - Past Family History Mother History Unknown: Yes Additional Family Medical History / Comment(s): pt states adopted does not know hx <Rajwinder Lind - Last Filed: 01/04/25 08:36> General Exam Limitations: no limitations General appearance: alert, in no apparent distress Respiratory exam: Present: normal lung sounds bilaterally. Absent: respiratory distress, wheezes, rales, rhonchi, stridor Cardiovascular Exam: Present: regular rate, normal rhythm, normal heart sounds. Absent: systolic murmur, diastolic murmur, rubs, gallop, clicks GI/Abdominal exam: Present: soft, normal bowel sounds. Absent: distended, tenderness, guarding, rebound, rigid External exam: Present: lesions (Erythematous raised with minimal ulceration few vesicular lesions noted. to right labia majora) Neurological exam: Present: alert, oriented X3, CN II-XII intact Skin exam: Present: warm, dry, intact, normal color. Absent: rash <Rajwinder Lind - Last Filed: 01/04/25 08:36> Course <Rajwinder Lind - Last Filed: 01/04/25 08:36> Vital Signs 01/02/25 01/02/25 10:58 14:21 Temperature 98.4 F Pulse Rate 69 79 Respiratory 17 16 Rate Blood Pressure 116/74 115/69 O2 Sat by Pulse 98 98 Oximetry - Reevaluation(s) Reevaluation #1: 01/04/25 09:04 Pelvic examination chaperoned by Christen Mcgowan RN. (Rajwinder Lind) Medical Decision Making <Rajwinder Lind - Last Filed: 01/04/25 08:36> <Mara Varghese - Last Filed: 01/06/25 10:20> - Medical Decision Making Was pt. sent in by a medical professional or institution (, DAVE, BUFFING WHEEL FORMER AUTOMATIC, urgent care, hospital, or custodial...) When possible be specific @ -No Did you speak to anyone other than the patient for history (EMS, parent, family, police, friend...)? What history was obtained from this source @ -No Did you review nursing and triage notes (agree or disagree)? Why? @ -I reviewed and agree with nursing and triage notes Were old charts reviewed (outside hosp., previous admission, EMS record, old EKG, old radiological studies, urgent care reports/EKG's, custodial records)? Report findings @ -No old charts were reviewed Differential Diagnosis (chest pain, altered mental status, abdominal pain women, abdominal pain men, vaginal bleeding, weakness, fever, dyspnea, syncope, headache, dizziness, GI bleed, back pain, seizure, CVA, palpatations, mental health, musculoskeletal)? @ -gonorrhea, syphillis, herpes simplex, UTI, ... this list is not meant to be all inclusive EKG interpreted by me (3pts min.). @ -None done X-rays interpreted by me (1pt min.). @ -None done CT interpreted by me (1pt min.). @ -None done U/S interpreted by me (1pt. min.). @ -None done What testing was considered but not performed or refused? (CT, X-rays, U/S, labs)? Why? @ -None What meds were considered but not given or refused? Why? @ -None Did you discuss the management of the patient with other professionals (professionals i.e. DAVE Kee, BUFFING WHEEL FORMER AUTOMATIC, lab, RT, psych nurse, secondary social studies teacher, cement or concrete finishing supervisor, teacher, correctional officer lieutenant, manager of case)? Give summary @ -No Was smoking cessation discussed for >3mins.? @ -No Was critical care preformed (if so, how long)? @ -No Were there social determinants of health that impacted care today? How? (Homelessness, low income, unemployed, alcoholism, drug addiction, transportation, low edu. Level, literacy, decrease access to med. care, fdc, rehab)? @ -No Was there de-escalation of care discussed even if they declined (Discuss DNR or withdrawal of care, Hospice)? DNR status @ -No What co-morbidities impacted this encounter? (DM, HTN, Smoking, COPD, CAD, Cancer, CVA, ARF, Chemo, Hep., AIDS, mental health diagnosis, sleep apnea, morbid obesity)? @ -None Was patient admitted / discharged? Hospital course, mention meds given and route, prescriptions, significant lab abnormalities, going to OR and other pertinent info. @ -Discharged. 24 year old female presenting to the ER for evaluation of pelvic discomfort. Vitals within acceptable limits. Exam remarkable for a herpetic rash consistent was herpes simplex to right labia majora. No abnormal vaginal discharge noted. Speculum exam deferred as patient denies any abdominal pain or abnormal vaginal bleeding, patient is agreeable. UA and STD testing will be completed, patient is agreeable. Urinalysis with rare bacteria sample is contaminated with 17 epithelial cells. Urine be sent for culture. Urine hCG negative. Given concern of STDs with active herpes rash, urine gonorrhea, chlamydia, trichomonas and syphilis testing is ordered and pending at time of discharge. Patient elected for prophylactic treatment and received IM Rocephin and penicillin prior to discharge. Doxycycline, Flagyl, acyclovir prescribed. I educated patient on importance of notifying all sexual partners and to refrain for sexual activity until resolution of rash. Strict return parameters discussed. Patient discharged stable condition with follow-up to PCP and LOCKER PLANT ATTENDANT, referral given. Patient verbally expressed understanding agreement with care plan. Case discussed with ED attending, Dr. Varghese, who also evaluated patient Undiagnosed new problem with uncertain prognosis? @ -No Drug Therapy requiring intensive monitoring for toxicity (Heparin, Nitro, Insulin, Cardizem)? @ -No Were any procedures done? @ -No Diagnosis/symptom? @ -Genital hepres simplex/STD exposure Acute, or Chronic, or Acute on Chronic? @ -Acute Uncomplicated (without systemic symptoms) or Complicated (systemic symptoms)? @ -Uncomplicated Side effects of treatment? @ -No Exacerbation, Progression, or Severe Exacerbation? @ -No Poses a threat to life or bodily function? How? (Chest pain, [place], [place], pneumonia, PE, COPD, DKA, ARF, appy, cholecystitis, CVA, Diverticulitis, Homicidal, Suicidal, threat to staff... and all critical care pts) @ -Possibly, untreated STD can lead to infertility. (Rajwinder Lind) Agree with documentation as written above by ANDREW. I also personally evaluated the patient, performed exam with Christen RN, as representative personal service. (Mara Varghese) - Lab Data Lab Results 01/02/25 01/02/25 01/02/25 Range/Units 11:15 11:15 11:15 Urine Color Light Yellow Urine Appearance Cloudy H (Clear) Urine pH 7.5 (5.0-8.0) Ur Specific [place] 1.013 (1.001-1.035) Urine Protein Negative (Negative) Urine Glucose (UA) Negative (Negative) Urine Ketones Negative (Negative) Urine Blood Trace H (Negative) Urine Nitrite Negative (Negative) Urine Bilirubin Negative (Negative) Urine Urobilinogen <2.0 (<2.0) mg/dL Ur Leukocyte Esterase Moderate H (Negative) Urine RBC 15 H (0-5) /hpf Ur Squamous Epith Cells 17 H (0-4) /hpf Urine Bacteria Rare H (None) /hpf Urine Mucus Occasional H (None) /hpf Urine HCG, Qual Not Detected (Not Detectd) Treponema pallidum Ab (Nonreactive) Chlamydia DNA (PCR) Negative (Negative) N.gonorrhoeae DNA Probe Negative (Negative) 01/02/25 Range/Units 13:39 Urine Color Urine Appearance (Clear) Urine pH (5.0-8.0) Ur Specific [place] (1.001-1.035) Urine Protein (Negative) Urine Glucose (UA) (Negative) Urine Ketones (Negative) Urine Blood (Negative) Urine Nitrite (Negative) Urine Bilirubin (Negative) Urine Urobilinogen (<2.0) mg/dL Ur Leukocyte Esterase (Negative) Urine RBC (0-5) /hpf Ur Squamous Epith Cells (0-4) /hpf Urine Bacteria (None) /hpf Urine Mucus (None) /hpf Urine HCG, Qual (Not Detectd) Treponema pallidum Ab Nonreactive (Nonreactive) Chlamydia DNA (PCR) (Negative) N.gonorrhoeae DNA Probe (Negative) Disposition Is patient prescribed a controlled substance at d/c from ED?: No Time of Disposition: 13:36 <Rajwinder Lind - Last Filed: 01/04/25 08:36> <Mara Varghese - Last Filed: 01/06/25 10:20> Clinical Impression: Herpes simplex, Exposure to STD Disposition: HOME SELF-CARE Condition: Stable Instructions (If sedation given, give patient instructions): Genital Herpes Simplex (DC), Sexually Transmitted Diseases (ED) Additional Instructions: Take antibiotics as prescribed. Positive test results will call back to you. Follow-up with PCP. Return to the ER for any new or worsening concerns. Prescriptions: Acyclovir 400 mg PO TID 7 Days #42 capsule metroNIDAZOLE [Flagyl] 500 mg PO BID #14 tab Doxycycline [Vibramycin] 100 mg PO BID #14 capsule Referrals: None,Stated [Primary Care Provider] - 1-2 days Kira Cason, [Doctor of Osteopathic Medicine] - 1-2 days Forms: Area PCPs
[2025-01-02] MEDS ORDERED: cefTRIAXone 250 MG VIAL IM STA (13:31)
[2025-01-02] MEDS: PENICILLIN G BENZATHINE 1,200,000 UNIT/2 ML SYRINGE IM STA (14:05)
[2025-01-02] MEDS: cefTRIAXone 500 MG VIAL IM STA (14:10)
[2025-01-02 14:23] VITALS: BP 115/69; PULSE 79; RESP 16
[2025-01-05 13:27] LABS: C. trachomatis,PCR Negative (Negative)
[2025-01-05 13:42] LABS: N. gonorrhoeae,PCR Negative (Negative)
== END 2025-01-02 14:22 | disposition home or self-care (01) ==
LOC: EC 10:53
DX: B00.9 Herpesviral infection, unspecified (principal); Z20.2 Contact with and (suspected) exposure to infections with a predominantly sexual mode of transmission; Z32.02 Encounter for pregnancy test, result negative; F17.290 Nicotine dependence, other tobacco product, uncomplicated
CPT/HCPCS: 36415; 81001; 81025; 87491; 87591; 86780; 99283; 96372; J0561; J0696